=== PATIENT | female | born 1990 | race American Indian/Alaskan Native ===

== ENCOUNTER 2019-08-07 11:50 | Observation (INO) | payer MEDICAID ==
[2019-08-07] MEDS ORDERED: LACTATED RINGERS 1,000 ML ONE (12:51)
[2019-08-07] MEDS ORDERED: ONDANSETRON 4 MG/2 ML INJ ONE (12:54)
[2019-08-07] MEDS ORDERED: ONDANSETRON 4 MG/2 ML INJ IV ONE (13:12)
[2019-08-07] MEDS ORDERED: LACTATED RINGERS 1,000 ML IV ONE (13:30)
[2019-08-07 14:13] LABS: Basophils % (Auto) 0.4 % (0.0-1.8); Eosinophils % (Auto) 0.3 % (0.0-4.3); Hematocrit 40.3 % (30.3-42.9); Hemoglobin 13.9 gm/dl (10.1-14.3); Lymphocytes # (Auto) 2.6 K/mm3 (1.2-5.4); Lymphocytes % (Auto) 20.1 % (13.4-35.0); Mean Corpuscular HGB Conc 35 % (30-34); Mean Corpuscular Volume 90 fl (79-97); Monocytes # (Auto) 0.9 K/mm3 (0.0-0.8); Platelet Count 332 K/mm3 (140-440); Red Blood Count 4.49 M/mm3 (3.65-5.03); Red Cell Distribution Width 12.3 % (13.2-15.2)
[2019-08-07 14:56] LABS: Alanine Aminotransferase 46 units/L (7-56); Albumin 4.2 g/dL (3.9-5); BUN/Creatinine Ratio 14; Blood Urea Nitrogen 7 mg/dL (7-17); Calcium 9.7 mg/dL (8.4-10.2); Hemolysis Index 2
[2019-08-07] MEDS: LACTATED RINGERS 1,000 ML IV SCH (15:24)
[2019-08-07] MEDS ORDERED: POTASSIUM CHLORIDE 10 MEQ 10 MEQ/100 ML BAG IV ONE (16:30)
[2019-08-08] MEDS: LACTATED RINGERS 1,000 ML IV SCH ×2 (00:22→08:09)
[2019-08-08] MEDS ORDERED: D5W/0.45% NACL/KCL 20 MEQ 20 MEQ/1,000 ML BAG IV SCH (10:00)
[2019-08-08] MEDS ORDERED: AMPICILLIN 2 GM in SODIUM CHLORIDE 0.9% 50 ML IV ONE (12:19)
[2019-08-08] MEDS ORDERED: AMPICILLIN 1 GM in SODIUM CHLORIDE 0.9% 50 ML IV SCH ×2 (13:00→18:00)
[2019-08-08] MEDS ORDERED: AMPICILLIN/NS 2 GM/100 ML 2 GM/100 ML BAG IV ONE (13:00)
--- NOTE | 2019-08-08 13:47 | History and Physical Report ---
History of Present Illness Date of examination: 08/08/19 Date of admission: 08/07/19 12:42 Chief complaint: Admitted overnight with bilateral loin pains, nausea and vomiting, chills and high temperature. History of present illness: Patient first presented with her symptoms of nausea and vomiting and loin pains to [facility] in [place] 6 days ago, she was evaluated and sent home. Her difficulties persisted and she returned to the hospital last night after noticing blood in her urine. She is 15 weeks and says that she had been given to due dates of 01/15/2020 and 01/27/2020. She denied any vaginal bleeding. Past History Past Medical History: no pertinent history - Obstetrical History : 2 Medications and Allergies Allergies Allergy/AdvReac Type Severity Reaction Status Date / Time No Known Allergies Allergy Verified 08/13/16 07:10 Home Medications Medication Instructions Recorded Confirmed Last Taken Type Metoclopramide [Reglan] 10 mg PO ACHS 08/07/19 08/07/19 1 Day Ago History ~08/06/19 Nitrofurantoin 100 mg PO BID 08/07/19 08/07/19 1 Day Ago History ~08/06/19 Active Meds: Active Medications Potassium Chloride/Dextrose/Sod Cl (D5w/0.45% Nacl/Kcl 20 Meq) 20 meq in 1,000 mls @ 125 mls/hr IV DIRECT CESAR Last Admin: 08/08/19 10:45 Dose: 125 mls/hr Documented by: Ampicillin Sodium 1 gm/ Sodium (Chloride) 50 mls @ 200 mls/hr IV ONCE CESAR; Protocol Stop: 08/13/19 13:14 Ampicillin Sodium (Ampicillin/Ns 2 Gm/100 Ml) 2 gm in 100 mls @ 100 mls/hr IV ONCE ONE Stop: 08/08/19 13:59 Review of Systems Constitutional: fever, chills Gastrointestinal: nausea, vomiting Genitourinary: hematuria, other (loin pains, both sides) - Vital Signs Vital signs: Vital Signs Temp Pulse BP 99 F 83 112/68 08/07/19 14:39 08/07/19 14:39 08/07/19 14:39 Temp Pulse Resp BP Pulse Ox 98.0 F 90 18 107/61 99 08/08/19 11:57 08/08/19 11:57 08/08/19 11:57 08/08/19 11:57 08/08/19 11:57 - Physical Exam Breasts: Positive: deferred Lungs: Positive: Normal air movement Abdomen: Positive: soft, distention. Negative: tenderness - Obstetrical FHR: auscultation normal Results Result Diagrams: 08/07/19 13:51 08/08/19 07:59 Abnormal lab results 08/07/19 08/07/19 08/08/19 Range/Units 13:51 13:51 07:59 WBC 13.0 H (4.5-11.0) K/mm3 MCHC 35 H (30-34) % RDW 12.3 L (13.2-15.2) % [place] # 0.9 H (0.0-0.8) K/mm3 Seg Neutrophils % 72.2 H (40.0-70.0) % Seg Neutrophils # 9.4 H (1.8-7.7) K/mm3 Sodium 133 L (137-145) mmol/L Potassium 2.6 L* 2.5 L* (3.6-5.0) mmol/L Chloride 95.8 L (98-107) mmol/L Carbon Dioxide 21 L (22-30) mmol/L Creatinine 0.5 L (0.7-1.2) mg/dL All other labs normal. Assessment and Plan - Patient Problems (1) Hypokalemia Current Visit: Yes Status: Acute Plan to address problem: Hospitalist consult was requested. (2) Pyelonephritis affecting in second trimester Current Visit: Yes Status: Acute Plan to address problem: Patient will remain admitted for intravenous antibiotics. CBC, CMP, urine cultures, kidney ultrasounds, gallbladder and full obstetrical ultrasounds were ordered. Patient was started on intravenous ampicillin with a loading dose of 2 g and continuing with 1 g every 4 H
--- NOTE | 2019-08-08 17:10 | Ultrasound Report ---
OB Ultrasound HISTORY: . patient with abdominal pain TECHNIQUE: Grayscale and color Doppler imaging performed. COMPARISON: None FINDINGS: Transabdominal and endovaginal imaging was performed. There is a single intrauterine gestation which is breech in presentation. Overall EGA is approximatel y 16 weeks and 2 days by evaluating biparietal diameter, head circumference, abdominal circumference, and femoral length. The sonographic EGA is within one week of the clinical gestational age. Estimate d delivery date is 01/21/2020. The placenta approximates the cervical age, approximately 1.8 cm from the internal cervical os. There are amniotic fluid pockets greater than 2 cm. heart rate is 156 bpm. IMPRESSION: Single viable intrauterine gestation as outlined above. Please note that the placenta is currently approximately 1.8 cm from the internal cervical os. Signer Name: Feliz Cannon MD Signed: 08/08/2019 5:06 PM Workstation Name: [id number]
[2019-08-08] MEDS: AMPICILLIN/NS 1 GM/50 ML 1 GM/50 ML BAG IV SCH ×2 (17:52→22:05)
[2019-08-08] MEDS: POTASSIUM CHLORIDE 10 MEQ 10 MEQ/100 ML BAG IV SCH ×2 (20:56→22:06)
[2019-08-08 23:27] LABS: BUN/Creatinine Ratio 5; Blood Urea Nitrogen 2 mg/dL (7-17); Calcium 8.5 mg/dL (8.4-10.2); Hemolysis Index 9
[2019-08-09] MEDS: POTASSIUM CHLORIDE 10 MEQ 10 MEQ/100 ML BAG IV SCH ×5 (00:03→14:57)
[2019-08-09] MEDS: AMPICILLIN/NS 1 GM/50 ML 1 GM/50 ML BAG IV SCH ×4 (02:21→14:29)
--- NOTE | 2019-08-09 07:29 | Consultation ---
History of Present Illness - Reason for Consult Consult date: 08/08/19 Hypokalemia Requesting physician: ARTEM MOROCHO - History of Present Illness Medical consult for Hypokalemia. Patient has been vomiting . Patient first presented with her symptoms of nausea and vomiting and loin pains to [facility] in [place] 6 days ago, she was evaluated and sent home. Her difficulties persisted and she returned to [facility] last night after noticing blood in her urine. She is 15 weeks and says that she had been given due dates of 01/15/2020 and 01/27/2020. She denied any vaginal bleeding. Feels weak. Past History Past Medical History: No medical history Past Surgical History: No surgical history Social history: lives with family, full code Family history: hypertension Medications and Allergies Allergies Allergy/AdvReac Type Severity Reaction Status Date / Time No Known Allergies Allergy Verified 08/13/16 07:10 Home Medications Medication Instructions Recorded Confirmed Last Taken Type Metoclopramide [Reglan] 10 mg PO ACHS 08/07/19 08/07/19 1 Day Ago History ~08/06/19 Nitrofurantoin 100 mg PO BID 08/07/19 08/07/19 1 Day Ago History ~08/06/19 Active Meds: Active Medications Potassium Chloride/Dextrose/Sod Cl (D5w/0.45% Nacl/Kcl 20 Meq) 20 meq in 1,000 mls @ 125 mls/hr IV DIRECT CESAR Last Admin: 08/08/19 10:45 Dose: 125 mls/hr Documented by: Ampicillin Sodium (Ampicillin/Ns 1 Gm/50 Ml) 1 gm in 50 mls @ 100 mls/hr IV Q4HR CESAR Stop: 08/09/19 14:29 Last Admin: 08/09/19 06:14 Dose: 100 mls/hr Documented by: Review of Systems All systems: negative Exam - Constitutional Vitals: Temp Pulse Resp BP Pulse Ox 98.4 F 85 20 112/65 97 08/09/19 04:39 08/09/19 04:39 08/09/19 04:39 08/09/19 04:39 08/09/19 04:39 General appearance: Present: no acute distress, well-nourished - EENT Eyes: Present: PERRL ENT: hearing intact, clear oral mucosa - Neck Neck: Present: supple, normal ROM - Respiratory Respiratory effort: normal Respiratory: bilateral: CTA - Cardiovascular Heart Sounds: Present: S1 & S2. Absent: rub, click - Extremities Extremities: pulses symmetrical, No edema Peripheral Pulses: within normal limits - Abdominal General gastrointestinal: Present: soft, non-tender, non-distended, normal bowel sounds Female genitourinary: Present: normal - Integumentary Integumentary: Present: clear, warm, dry - Musculoskeletal Musculoskeletal: gait normal, strength equal bilaterally - Psychiatric Psychiatric: appropriate mood/affect, intact judgment & insight - Neurologic Neurologic: CNII-XII intact, moves all extremities Results - Labs CBC & Chem 7: 08/07/19 13:51 08/08/19 22:39 Labs: Abnormal lab results 08/08/19 08/08/19 Range/Units 07:59 22:39 Sodium 135 L (137-145) mmol/L Potassium 2.5 L* 2.8 L* (3.6-5.0) mmol/L BUN 2 L (7-17) mg/dL Creatinine 0.4 L (0.7-1.2) mg/dL Assessment and Plan - Patient Problems (1) Hypokalemia Current Visit: Yes Status: Acute Plan to address problem: IV potassium for now Check BMP (2) Dehydration Current Visit: Yes Status: Acute Plan to address problem: IV fluids for now
[2019-08-09 08:15] LABS: BUN/Creatinine Ratio 5; Blood Urea Nitrogen 2 mg/dL (7-17); Calcium 9.2 mg/dL (8.4-10.2); Hemolysis Index 2
[2019-08-09] MEDS: D5W/0.9% NACL 1,000 ML IV SCH (10:09)
[2019-08-09] MEDS ORDERED: POTASSIUM CHLORIDE ER 20 MEQ TAB PO ONE ×2 (11:41→13:01)
--- NOTE | 2019-08-09 12:03 | Progress Note ---
Assessment and Plan Assessment and plan: Severe hypokalemia - Likely due to recurrent vomiting - Currently vomiting resolved - Patient get IV potassium and her repeat potassium level is 3, will give her potassium PO - will check level after repletion - Magnesium level is normal Abdominal pain - Resolved Patient is on IV ampicillin per LEAD PASTOR I ordered U/A will follow along Thank you for your consult. History Interval history: Patient was seen and is wondering of the bedside, patient didn't have any vomiting or abdominal pain today. She doesn't have any complaints. Hospitalist Physical - Physical exam Narrative exam: Not in cardiopulmonary distress. The patient appeared well nourished and normally developed. Vital signs as documented. Head exam is unremarkable. No scleral icterus . Neck is without jugular venous distension, thyromegaly, or carotid bruits. Lungs are clear to auscultation. Cardiac exam reveals regular rate and Rhythm. Abdominal exam reveals normal bowel sounds, nontender, no organomegaly. Extremities are nonedematous and both femoral and pedal pulses are normal. CYCLE SPECIALIST: Alert and oriented 3. No focal weakness. - Constitutional Vitals: Temp Pulse Resp BP Pulse Ox 98.0 F 94 H 18 123/71 99 08/09/19 07:38 08/09/19 07:38 08/09/19 07:38 08/09/19 07:38 08/09/19 07:38 General appearance: Present: no acute distress, well-nourished Results - Labs CBC & Chem 7: 08/07/19 13:51 08/09/19 07:14 Labs: Laboratory Last Values WBC 13.0 K/mm3 (4.5-11.0) H 08/07/19 13:51 RBC 4.49 M/mm3 (3.65-5.03) 08/07/19 13:51 Hgb 13.9 gm/dl (10.1-14.3) 08/07/19 13:51 Hct 40.3 % (30.3-42.9) 08/07/19 13:51 MCV 90 fl (79-97) 08/07/19 13:51 MCH 31 pg (28-32) 08/07/19 13:51 MCHC 35 % (30-34) H 08/07/19 13:51 RDW 12.3 % (13.2-15.2) L 08/07/19 13:51 Plt Count 332 K/mm3 (140-440) 08/07/19 13:51 Lymph % (Auto) 20.1 % (13.4-35.0) 08/07/19 13:51 [place] % (Auto) 7.0 % (0.0-7.3) 08/07/19 13:51 Eos % (Auto) 0.3 % (0.0-4.3) 08/07/19 13:51 Baso % (Auto) 0.4 % (0.0-1.8) 08/07/19 13:51 Lymph # 2.6 K/mm3 (1.2-5.4) 08/07/19 13:51 Haakon # 0.9 K/mm3 (0.0-0.8) H 08/07/19 13:51 Eos # 0.0 K/mm3 (0.0-0.4) 08/07/19 13:51 Baso # 0.0 K/mm3 (0.0-0.1) 08/07/19 13:51 Seg Neutrophils % 72.2 % (40.0-70.0) H 08/07/19 13:51 Seg Neutrophils # 9.4 K/mm3 (1.8-7.7) H 08/07/19 13:51 Sodium 136 mmol/L (137-145) L 08/09/19 07:14 Potassium 3.0 mmol/L (3.6-5.0) L 08/09/19 07:14 Chloride 101.0 mmol/L (98-107) 08/09/19 07:14 Carbon Dioxide 21 mmol/L (22-30) L 08/09/19 07:14 Anion Gap 17 mmol/L 08/09/19 07:14 BUN 2 mg/dL (7-17) L 08/09/19 07:14 Creatinine 0.4 mg/dL (0.7-1.2) L 08/09/19 07:14 Estimated GFR > 60 ml/min 08/09/19 07:14 BUN/Creatinine Ratio 5 % 08/09/19 07:14 Glucose 85 mg/dL (65-100) 08/09/19 07:14 Calcium 9.2 mg/dL (8.4-10.2) 08/09/19 07:14 Magnesium 1.80 mg/dL (1.7-2.3) 08/09/19 07:14 Total Bilirubin 0.80 mg/dL (0.1-1.2) 08/07/19 13:51 AST 33 units/L (5-40) 08/07/19 13:51 ALT 46 units/L (7-56) 08/07/19 13:51 Alkaline Phosphatase 76 units/L (35-129) 08/07/19 13:51 Total Protein 8.0 g/dL (6.3-8.2) 08/07/19 13:51 Albumin 4.2 g/dL (3.9-5) 08/07/19 13:51 Albumin/Globulin Ratio 1.1 % 08/07/19 13:51 Active Medications - Current Medications Current Medications: Generic Name Dose Route Start Last Admin Trade Name Freq PRN Reason Stop Dose Admin Ampicillin Sodium 1 gm in 50 mls @ 100 mls/hr 08/08/19 18:00 08/09/19 10:00 Ampicillin/Ns 1 Gm/50 Ml IV 08/09/19 14:29 100 mls/hr Q4HR CESAR Administration Potassium Chloride 10 meq in 100 mls @ 100 mls/hr 08/09/19 08:30 08/09/19 11:07 Kcl 10meq/100ml IV 08/09/19 12:29 Not Given Q1H CESAR Dextrose/Sodium Chloride 1,000 mls @ 75 mls/hr 08/09/19 08:00 08/09/19 10:09 D5ns IV 75 mls/hr DIRECT CESAR Administration
[2019-08-09 13:48] LABS: Bacteria,Urine 1+ /HPF (Negative); Bilirubin,Urine NEG (Negative); Blood,Urine LG (Negative); Color,Urine Yellow (Yellow); Mucus,Urine FEW /HPF; Protein,Urine <15 mg/dL mg/dL (Negative)
[2019-08-09 13:51] LABS: RBC,Urine > 182.0 /HPF (0.0-6.0)
--- NOTE | 2019-08-09 15:56 | Progress Note ---
Assessment and Plan - Patient Problems (1) Hypokalemia Current Visit: Yes Status: Acute (2) Pyelonephritis affecting in second trimester Current Visit: Yes Status: Acute Plan to address problem: Present management appears to be yielding results and will continue. Cultures results of urine and blood were noted. Last K value was also noted at 3.0. Subjective Date of service: 08/09/19 Principal diagnosis: Pyelonephritis Interval history: Under management for UTI and hypokalemia. Reported having no loin pains today and craving solid food. Objective - Constitutional Vitals: Vital Signs - 12hr 08/09/19 08/09/19 08/09/19 04:39 07:38 11:44 Temperature 98.4 F 98.0 F 98.7 F Pulse Rate 85 94 H 85 Respiratory 20 18 16 Rate Blood Pressure 112/65 123/71 100/49 O2 Sat by Pulse 97 99 98 Oximetry 08/09/19 15:31 Temperature 98.4 F Pulse Rate 87 Respiratory 16 Rate Blood Pressure 112/59 O2 Sat by Pulse 98 Oximetry General appearance: Present: no acute distress - EENT Eyes: PERRL - Respiratory Respiratory effort: normal - Labs CBC & Chem 7: 08/07/19 13:51 08/09/19 07:14 Labs: Abnormal lab results 08/08/19 08/09/19 08/09/19 Range/Units 22:39 07:14 12:50 Sodium 135 L 136 L (137-145) mmol/L Potassium 2.8 L* 3.0 L (3.6-5.0) mmol/L Carbon Dioxide 21 L (22-30) mmol/L BUN 2 L 2 L (7-17) mg/dL Creatinine 0.4 L 0.4 L (0.7-1.2) mg/dL Urine pH 8.0 H (5.0-7.0) U Epithel Cells (Auto) 19.0 H (0-13.0) /HPF Medications & Allergies - Medications Allergies/Adverse Reactions: Allergies No Known Allergies Allergy (Verified 08/13/16 07:10) Home Medications: Home Medications Medication Instructions Recorded Confirmed Last Taken Type Metoclopramide [Reglan] 10 mg PO ACHS 08/07/19 08/07/19 1 Day Ago History ~08/06/19 Nitrofurantoin 100 mg PO BID 08/07/19 08/07/19 1 Day Ago History ~08/06/19 Active Medications: Generic Name Dose Route Start Last Admin Trade Name Freq PRN Reason Stop Dose Admin Dextrose/Sodium Chloride 1,000 mls @ 75 mls/hr 08/09/19 08:00 08/09/19 10:09 D5ns IV 75 mls/hr DIRECT CESAR Administration
[2019-08-10 06:38] LABS: BUN/Creatinine Ratio 5; Blood Urea Nitrogen 2 mg/dL (7-17); Calcium 8.7 mg/dL (8.4-10.2); Hemolysis Index 16
[2019-08-10] MEDS ORDERED: POTASSIUM CHLORIDE ER 20 MEQ TAB PO NR ×2 (07:57→11:30)
[2019-08-10] MEDS: D5W/0.9% NACL 1,000 ML IV SCH (10:05)
[2019-08-10] MEDS: POTASSIUM CHLORIDE ER 20 MEQ TAB PO SCH ×2 (10:05→21:12)
--- NOTE | 2019-08-10 15:26 | Progress Note ---
Assessment and Plan Assessment and plan: Severe hypokalemia - Likely due to recurrent vomiting - Currently vomiting resolved - Patient get IV potassium and her repeat potassium level is 3, will give her potassium PO - will check level after repletion - Magnesium level is normal Abdominal pain - Resolved Patient is on IV ampicillin per SNOW REMOVING SUPERVISOR - U/A negative will follow along Thank you for your consult. History Interval history: Patient was seen and is wondering of the bedside, patient didn't have any vomiting or abdominal pain today. She doesn't have any complaints. Hospitalist Physical - Physical exam Narrative exam: Not in cardiopulmonary distress. The patient appeared well nourished and normally developed. Vital signs as documented. Head exam is unremarkable. No scleral icterus . Neck is without jugular venous distension, thyromegaly, or carotid bruits. Lungs are clear to auscultation. Cardiac exam reveals regular rate and Rhythm. Abdominal exam reveals normal bowel sounds, nontender, no organomegaly. Extremities are nonedematous and both femoral and pedal pulses are normal. SECURITY SHIFT SUPERVISOR: Alert and oriented 3. No focal weakness. - Constitutional Vitals: Temp Pulse Resp BP Pulse Ox 98.1 F 88 18 114/71 98 08/10/19 12:48 08/10/19 12:48 08/10/19 12:48 08/10/19 12:48 08/10/19 05:49 General appearance: Present: no acute distress Results - Labs CBC & Chem 7: 08/07/19 13:51 08/10/19 14:51 Labs: Laboratory Last Values WBC 13.0 K/mm3 (4.5-11.0) H 08/07/19 13:51 RBC 4.49 M/mm3 (3.65-5.03) 08/07/19 13:51 Hgb 13.9 gm/dl (10.1-14.3) 08/07/19 13:51 Hct 40.3 % (30.3-42.9) 08/07/19 13:51 MCV 90 fl (79-97) 08/07/19 13:51 MCH 31 pg (28-32) 08/07/19 13:51 MCHC 35 % (30-34) H 08/07/19 13:51 RDW 12.3 % (13.2-15.2) L 08/07/19 13:51 Plt Count 332 K/mm3 (140-440) 08/07/19 13:51 Lymph % (Auto) 20.1 % (13.4-35.0) 08/07/19 13:51 Johnson % (Auto) 7.0 % (0.0-7.3) 08/07/19 13:51 Eos % (Auto) 0.3 % (0.0-4.3) 08/07/19 13:51 Baso % (Auto) 0.4 % (0.0-1.8) 08/07/19 13:51 Lymph # 2.6 K/mm3 (1.2-5.4) 08/07/19 13:51 Johnson # 0.9 K/mm3 (0.0-0.8) H 08/07/19 13:51 Eos # 0.0 K/mm3 (0.0-0.4) 08/07/19 13:51 Baso # 0.0 K/mm3 (0.0-0.1) 08/07/19 13:51 Seg Neutrophils % 72.2 % (40.0-70.0) H 08/07/19 13:51 Seg Neutrophils # 9.4 K/mm3 (1.8-7.7) H 08/07/19 13:51 Sodium 139 mmol/L (137-145) 08/10/19 05:30 Potassium 3.4 mmol/L (3.6-5.0) L 08/10/19 14:51 Chloride 105.8 mmol/L (98-107) 08/10/19 05:30 Carbon Dioxide 19 mmol/L (22-30) L 08/10/19 05:30 Anion Gap 17 mmol/L 08/10/19 05:30 BUN 2 mg/dL (7-17) L 08/10/19 05:30 Creatinine 0.4 mg/dL (0.7-1.2) L 08/10/19 05:30 Estimated GFR > 60 ml/min 08/10/19 05:30 BUN/Creatinine Ratio 5 % 08/10/19 05:30 Glucose 92 mg/dL (65-100) 08/10/19 05:30 Calcium 8.7 mg/dL (8.4-10.2) 08/10/19 05:30 Magnesium 1.80 mg/dL (1.7-2.3) 08/09/19 07:14 Total Bilirubin 0.80 mg/dL (0.1-1.2) 08/07/19 13:51 AST 33 units/L (5-40) 08/07/19 13:51 ALT 46 units/L (7-56) 08/07/19 13:51 Alkaline Phosphatase 76 units/L (35-129) 08/07/19 13:51 Total Protein 8.0 g/dL (6.3-8.2) 08/07/19 13:51 Albumin 4.2 g/dL (3.9-5) 08/07/19 13:51 Albumin/Globulin Ratio 1.1 % 08/07/19 13:51 Urine Color Yellow (Yellow) 08/09/19 12:50 Urine Turbidity Slightly-cloudy (Clear) 08/09/19 12:50 Urine pH 8.0 (5.0-7.0) H 08/09/19 12:50 Ur Specific [place] 1.009 (1.003-1.030) 08/09/19 12:50 Urine Protein <15 mg/dl mg/dL (Negative) 08/09/19 12:50 Urine Glucose (UA) Neg mg/dL (Negative) 08/09/19 12:50 Urine Ketones 20 mg/dL (Negative) 08/09/19 12:50 Urine Blood Lg (Negative) 08/09/19 12:50 Urine Nitrite Neg (Negative) 08/09/19 12:50 Urine Bilirubin Neg (Negative) 08/09/19 12:50 Urine Urobilinogen 4.0 mg/dL (<2.0) 08/09/19 12:50 Ur Leukocyte Esterase Sm (Negative) 08/09/19 12:50 Urine WBC (Auto) 6.0 /HPF (0.0-6.0) 08/09/19 12:50 Urine RBC (Auto) > 182.0 /HPF (0.0-6.0) 08/09/19 12:50 U Epithel Cells (Auto) 19.0 /HPF (0-13.0) H 08/09/19 12:50 Urine Bacteria (Auto) 1+ /HPF (Negative) 08/09/19 12:50 Urine Mucus Few /HPF 08/09/19 12:50 Active Medications - Current Medications Current Medications: Generic Name Dose Route Start Last Admin Trade Name Osielq PRN Reason Stop Dose Admin Dextrose/Sodium Chloride 1,000 mls @ 75 mls/hr 08/09/19 08:00 08/10/19 10:05 D5ns IV 75 mls/hr DIRECT CESAR Administration Potassium Chloride 40 meq 08/10/19 10:00 08/10/19 10:05 K-Dur PO 40 meq BID CESAR Administration Potassium Chloride 40 meq 08/10/19 15:25 K-Dur PO 08/10/19 15:26 ONCE ONE
[2019-08-10] MEDS ORDERED: POTASSIUM CHLORIDE ER 20 MEQ TAB PO ONE (16:30)
--- NOTE | 2019-08-10 17:16 | Progress Note ---
Assessment and Plan - Patient Problems (1) Dehydration Current Visit: Yes Status: Acute Plan to address problem: PT tolerating PO so she was encouraged to cont to hydrate well. Her blood in urine should clear as she continues to hydrate. No CVAT so obstructive stone not likely. PT's urine culture was negative. (2) Hypokalemia Current Visit: Yes Status: Acute Plan to address problem: K was 2.5 on admission and now upto 3.4. Obstetrically, pt is stable for d/c. Will verify that medicine is okay with it as well. Will send home with Unisom/Vit B6 to help with nausea along with a few days of additional potassium to supplement with at home. HEG precautions d/w pt. F/U in office next week Subjective - Subjective Date of service: 08/10/19 Principal diagnosis: Pyelonephritis Interval history: hypokalemia Patient reports: other (PT doing well. PO is tolerated. No VB, no pelvic pain. PT still with some gross hematuria she still notes but no upper back pain.), no new complaints, no loss of fluid, no vaginal bleeding, no contractions Objective - Vital Signs Vital Signs: Vital Signs - 12hr 08/10/19 08/10/19 08/10/19 05:49 08:18 12:48 Temperature 98.0 F 97.9 F 98.1 F Pulse Rate 85 83 88 Respiratory 14 18 18 Rate Blood Pressure 110/61 Blood Pressure 103/61 114/71 [Left] O2 Sat by Pulse 98 Oximetry 08/10/19 16:05 Temperature 98.3 F Pulse Rate 87 Respiratory 18 Rate Blood Pressure Blood Pressure 109/57 [Left] O2 Sat by Pulse Oximetry - Exam Narrative Exam: NAD No CVAT B/L - Labs Labs: Abnormal Labs 08/07/19 08/07/19 08/08/19 13:51 13:51 07:59 WBC 13.0 H MCHC 35 H RDW 12.3 L Ellis # 0.9 H Seg Neutrophils % 72.2 H Seg Neutrophils # 9.4 H Sodium 133 L Potassium 2.6 L* 2.5 L* Chloride 95.8 L Carbon Dioxide 21 L BUN Creatinine 0.5 L Urine pH U Epithel Cells (Auto) 08/08/19 08/09/19 08/09/19 22:39 07:14 12:50 WBC MCHC RDW Ellis # Seg Neutrophils % Seg Neutrophils # Sodium 135 L 136 L Potassium 2.8 L* 3.0 L Chloride Carbon Dioxide 21 L BUN 2 L 2 L Creatinine 0.4 L 0.4 L Urine pH 8.0 H U Epithel Cells (Auto) 19.0 H 08/10/19 08/10/19 05:30 14:51 WBC MCHC RDW Ellis # Seg Neutrophils % Seg Neutrophils # Sodium Potassium 3.1 L 3.4 L Chloride Carbon Dioxide 19 L BUN 2 L Creatinine 0.4 L Urine pH U Epithel Cells (Auto) Laboratory Results - last 24 hr 08/10/19 08/10/19 05:30 14:51 Sodium 139 Potassium 3.1 L 3.4 L Chloride 105.8 Carbon Dioxide 19 L Anion Gap 17 BUN 2 L Creatinine 0.4 L Estimated GFR > 60 BUN/Creatinine Ratio 5 Glucose 92 Calcium 8.7
[2019-08-10 22:53] VITALS: BP 100/48
== END 2019-08-10 23:30 | disposition home or self-care (01) ==
LOC: 3A 11:50 → UNDOADMOB 11:50 → OB 12:42
PROVIDERS: ADMIT Obstetrics & Gynecology; ATTEND Obstetrics & Gynecology
DX: O23.02 Infections of kidney in pregnancy, second trimester (principal); N12 Tubulo-interstitial nephritis, not specified as acute or chronic; E87.6 Hypokalemia; E86.0 Dehydration; Z3A.15 15 weeks gestation of pregnancy
CPT/HCPCS: 36415; 76805; 76817; 80048; 80053; 81001; 83735; 84132; 85025; 87040; 87086; 96361; 96365; 96366; 96368; 96375; G0378; G0379; J0290; J2405; J3480; J7042; J7120

== ENCOUNTER 2019-09-28 06:16 | Inpatient (IN) | payer OTHER ==
[2019-09-28] MEDS ORDERED: LACTATED RINGERS 1,000 ML ONE (06:23)
[2019-09-28] MEDS ORDERED: LACTATED RINGERS 1,000 ML IV ONE (06:28)
[2019-09-28 06:57] LABS: Bacteria,Urine 2+ /HPF (Negative); Bilirubin,Urine NEG (Negative); Blood,Urine SM (Negative); Color,Urine Amber (Yellow); Mucus,Urine 2+ /HPF
[2019-09-28 06:59] LABS: WBC,Urine > 182.0 /HPF (0.0-6.0)
--- NOTE | 2019-09-28 08:11 | History and Physical Report ---
History of Present Illness Date of examination: 09/28/19 Date of admission: 09/28/2019 Chief complaint: Complaining of difficulty with urination, poor appetite, suprapubic pain, bilateral loin pains. She denied fever and chills. History of present illness: 29 yr old at 22 weeks gestation. RICKIE 01/27/2020. Complaining of difficulty with urination, poor appetite, suprapubic pain, bilateral loin pains. She denied fever and chills. Patient was treated for pyelonephritis about 4 wks ago here at [facility] and described her state now as how she felt then. She stated her fetus was normally-active with no leakage of fluids or bleeding per vaginam. Past History Past Medical History: renal disease - Obstetrical History Expected Date of Delivery: 01/27/20 Actual Gestation: 22 Week(s) 5 Day(s) : 3 Para: 1 Medications and Allergies Allergies Allergy/AdvReac Type Severity Reaction Status Date / Time No Known Allergies Allergy Verified 09/28/19 06:28 Home Medications Medication Instructions Recorded Confirmed Last Taken Type Doxylamine Succinate [Unisom] 25 mg PO QHS PRN #30 tablet 08/10/19 Unknown Rx Potassium Chloride [K-Dur] 40 meq PO BID #10 tablet 08/10/19 Unknown Rx Pyridoxine HCl (Vitamin B6) 25 mg PO Q6HR PRN #30 tablet 08/10/19 Unknown Rx [Pyridoxine HCl] Review of Systems Constitutional: anorexia, malaise, poor appetite, no fever, no chills, no sweats Cardiovascular: no chest pain, no palpitations Respiratory: no cough Gastrointestinal: abdominal pain, loss of appetite, no vomiting, no diarrhea Genitourinary: dysuria, pelvic pain, no vaginal bleeding, no vaginal discharge, no contractions - Vital Signs Vital signs: Vital Signs Temp 98.9 F 09/28/19 06:30 Temp Pulse Resp BP Pulse Ox 98.9 F 97 H 124/63 100 09/28/19 06:30 09/28/19 07:12 09/28/19 07:12 09/28/19 07:09 - Physical Exam Lungs: Positive: Normal air movement Abdomen: Positive: normal appearance, soft, tenderness (suprapubic), normal bowel sounds Extremities: Positive: normal - Obstetrical FHR: category 1 Uterine Contraction Monitor Mode: External Results Abnormal lab results 09/28/19 Range/Units 06:43 Urine WBC (Auto) > 182.0 H (0.0-6.0) /HPF All other labs normal. Assessment and Plan - Patient Problems (1) Pyelonephritis affecting in second trimester Current Visit: No Status: Acute Plan to address problem: Orders were given for urine and blood cultures, cbc, cmp, D5LR, WILVER, Admit to in-patient. OB US, Kidney and bladder US. Consult to M and nephrology.
[2019-09-28] MEDS ORDERED: DOCUSATE SODIUM 100 MG CAP PO PRN (09:00)
[2019-09-28] MEDS ORDERED: ACETAMINOPHEN 325 MG TAB PO PRN (09:00)
[2019-09-28] MEDS ORDERED: HYDROmorphone 2 MG/1 ML INJ IV PRN (09:15)
--- NOTE | 2019-09-28 09:28 | Consultation ---
History of Present Illness Consult date: 09/28/19 Requesting physician: ARTEM MOROCHO History of present illness: Complaining of difficulty with urination, poor appetite, suprapubic pain, bilateral loin pains. She denied fever and chills. History of present illness: 29 yr old at [facility] at 22 weeks gestation. 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 Vag deferred OB 2015 Term M 8'5" No med No surg NKA No STD Past History Past Medical History: renal disease - Obstetrical History : 3 Medications and Allergies Allergies Allergy/AdvReac Type Severity Reaction Status Date / Time No Known Allergies Allergy Verified 09/28/19 06:28 Home Medications Medication Instructions Recorded Confirmed Last Taken Type Doxylamine Succinate [Unisom] 25 mg PO QHS PRN #30 tablet 08/10/19 Unknown Rx Potassium Chloride [K-Dur] 40 meq PO BID #10 tablet 08/10/19 Unknown Rx Pyridoxine HCl (Vitamin B6) 25 mg PO Q6HR PRN #30 tablet 08/10/19 Unknown Rx [Pyridoxine HCl] Active Meds: Active Medications Acetaminophen (Tylenol) 650 mg PO Q4H PRN PRN Reason: Pain MILD(1-3)/Fever >100.5/MARSHALL Docusate Sodium (Colace) 100 mg PO Q12H PRN PRN Reason: Constipation Hydromorphone HCl (Dilaudid) 2 mg IV Q4H PRN PRN Reason: Pain , Severe (7-10) Dextrose/Lactated Ringer's (D5lr) 1,000 mls @ 125 mls/hr IV DIRECT CESAR Ampicillin Sodium (Ampicillin/Ns 2 Gm/100 Ml) 2 gm in 100 mls @ 100 mls/hr IV Q4H CESAR; Protocol Multivitamins/Iron/Calcium ( Vitamin) 1 each PO QDAY CESAR - Vital Signs Vital signs: Vital Signs Temp 98.9 F 09/28/19 06:30 Temp Pulse Resp BP Pulse Ox 98.9 F 97 H 18 124/63 100 09/28/19 08:41 09/28/19 07:12 09/28/19 08:41 09/28/19 07:12 09/28/19 07:09 Results Abnormal lab results 09/28/19 Range/Units 06:43 Urine WBC (Auto) > 182.0 H (0.0-6.0) /HPF All other labs normal. Assessment and Plan Impression: 1. Massey IUP at 22 5/7 weeks 2. Pyelo 3. R/O Stone 4. H/O Pyelo Recommendations: 1. Pain meds Dilaudid 2 q 4-6 IV 2. Zofran 4 to 8 mg q 4R prn nausea 3. Rocephin 1 g q 24 hours 4. Please give patient script for Macrodantin 100mg PO q day for duration of when discharged 5. Urine C&S 6. Blood C&S , CMP CBC 7. IV Hydration 8. Renal US R/O stones
[2019-09-28] MEDS ORDERED: ONDANSETRON 4 MG/2 ML INJ IV PRN (09:33)
[2019-09-28 09:48] LABS: Hematocrit 32.6 % (30.3-42.9); Hemoglobin 11.6 gm/dl (10.1-14.3); Mean Corpuscular HGB Conc 36 % (30-34); Mean Corpuscular Volume 92 fl (79-97); Platelet Count 195 K/mm3 (140-440); Red Blood Count 3.54 M/mm3 (3.65-5.03); Red Cell Distribution Width 13.4 % (13.2-15.2)
[2019-09-28 10:12] LABS: Alanine Aminotransferase 8 units/L (7-56); Albumin 3.3 g/dL (3.9-5); BUN/Creatinine Ratio 7; Blood Urea Nitrogen 4 mg/dL (7-17); Calcium 8.7 mg/dL (8.4-10.2); Hemolysis Index 14
--- NOTE | 2019-09-28 10:37 | Ultrasound Report ---
ULTRASOUND OBSTETRIC LIMITED INDICATION / CLINICAL INFORMATION: cervix evaluation and rule out abruption. TECHNIQUE: Transabdominal ultrasound imaging. COMPARISON: 08/08/2019 FINDINGS: HEART RATE (beats per minute): 155 AMNIOTIC FLUID INDEX (cm) = qualitatively normal PRESENTATION: Cephalic. PLACENTA: Posterior, grade 1. No evidence for abruption or previa. ADDITIONAL FINDINGS: The cervix measures 4.1 cm in length. IMPRESSION: No significant abnormality. Signer Name: Ari David Jr, MD Signed: 09/28/2019 10:32 AM Workstation Name: [id number]
--- NOTE | 2019-09-28 10:38 | Ultrasound Report ---
RENAL ULTRASOUND HISTORY: flank pain IUP. COMPARISON: None. TECHNIQUE: Multiple real-time ultrasonographic grayscale images were obtained of the kidneys and urin rodo bladder. FINDINGS: Right kidney: Moderate hydronephrosis. No calculi identified. Kidney measures 11.2 cm. Left kidney: No significant abnormality. No hydronephrosis. Kidney measures 10.8 cm. Urinary bladder: No significant abnormality. Additional findings: None. IMPRESSION: 1. Moderate right hydronephrosis of . 2. Otherwise normal kidneys. Signer Name: Norm Ng MD Signed: 09/28/2019 10:34 AM Workstation Name: [id number]
[2019-09-28] MEDS: AMPICILLIN/NS 2 GM/100 ML 2 GM/100 ML BAG IV SCH ×4 (10:47→22:09)
[2019-09-28] MEDS: D5W/LACTATED RINGERS 1,000 ML IV SCH ×2 (10:53→16:06)
[2019-09-28 11:04] LABS: Basophils % (Manual) 0 % (0.0-1.8); Eosinophils % (Manual) 0 % (0.0-4.3); Platelet Estimate Consistent w Auto; RBC Morphology Normal; Total Cells Counted 100
[2019-09-28] MEDS ORDERED: POTASSIUM CHLORIDE ER 20 MEQ TAB PO ONE ×2 (12:23→16:40)
--- NOTE | 2019-09-28 12:23 | Consultation ---
History of Present Illness - Reason for Consult Consult date: 09/28/19 hypokalemia Requesting physician: ARTEM MOROCHO - History of Present Illness 29 YO Female at 22 weeks gestation. Consult placed for Hypokalemia. Patient seen and evaluated in her room. Patient acknowledges nausea patient denies fatigue, muscle cramping, loose stools, vomiting, chest pain, palpitations, dizziness, extremity weakness, muscle aches, muscle stiffness, numbness, or tingling. No reported nursing events. Past History Past Medical History: other (UTI/Pyelo) Past Surgical History: No surgical history, Other (reviewed) Social history: single. denies: smoking, alcohol abuse, prescription drug abuse Family history: no significant family history (reviewed) Medications and Allergies Allergies Allergy/AdvReac Type Severity Reaction Status Date / Time No Known Allergies Allergy Verified 09/28/19 06:28 Home Medications Medication Instructions Recorded Confirmed Last Taken Type Doxylamine Succinate [Unisom] 25 mg PO QHS PRN #30 tablet 08/10/19 Unknown Rx Potassium Chloride [K-Dur] 40 meq PO BID #10 tablet 08/10/19 Unknown Rx Pyridoxine HCl (Vitamin B6) 25 mg PO Q6HR PRN #30 tablet 08/10/19 Unknown Rx [Pyridoxine HCl] Active Meds: Active Medications Acetaminophen (Tylenol) 650 mg PO Q4H PRN PRN Reason: Pain MILD(1-3)/Fever >100.5/MARSHALL Docusate Sodium (Colace) 100 mg PO Q12H PRN PRN Reason: Constipation Hydromorphone HCl (Dilaudid) 2 mg IV Q4H PRN PRN Reason: Pain , Severe (7-10) Last Admin: 09/28/19 11:46 Dose: 2 mg Documented by: Dextrose/Lactated Ringer's (D5lr) 1,000 mls @ 125 mls/hr IV DIRECT CESAR Last Admin: 09/28/19 10:53 Dose: 125 mls/hr Documented by: Ampicillin Sodium (Ampicillin/Ns 2 Gm/100 Ml) 2 gm in 100 mls @ 100 mls/hr IV Q4H CESAR; Protocol Last Admin: 09/28/19 10:47 Dose: 100 mls/hr Documented by: Multivitamins/Iron/Calcium ( Vitamin) 1 each PO QDAY CESAR Ondansetron HCl (Zofran) 4 mg IV Q4H PRN PRN Reason: Nausea And Vomiting Last Admin: 09/28/19 10:39 Dose: 4 mg Documented by: Review of Systems Constitutional: no weight loss, no weight gain, no fever, no chills, no weakness Ears, nose, mouth and throat: no ear pain, no ear discharge, no tinnitis, no nose pain, no nasal congestion Breasts: no change in shape, no swelling, no mass Cardiovascular: no chest pain, no orthopnea, no palpitations, no edema, no syncope Respiratory: no cough, no cough with sputum, no excessive sputum, no hemoptysis Gastrointestinal: nausea, no vomiting, no constipation, no change in bowel habits Genitourinary Female: no pelvic pain, no flank pain, no menorrhagia, no dysuria, no urinary frequency, no urgency Rectal: no pain, no incontinence, no bleeding Musculoskeletal: no neck stiffness, no neck pain, no shooting arm pain, no low back pain, no shooting leg pain Integumentary: no rash, no pruritis, no redness, no sores, no wounds Neurological: no transient paralysis, no paralysis, no weakness, no parathesias, no numbness, no tingling, no seizures Psychiatric: no anxiety, no memory loss, no sleep disturbances, no insomnia, no change in libido Endocrine: no cold intolerance, no excessive thirst, no polyuria, no nocturia, no excessive sweating Hematologic/Lymphatic: no easy bruising, no lymphadenopathy, no lymphedema Allergic/Immunologic: no urticaria, no anaphylaxis Exam - Constitutional Vitals: Temp Pulse Resp BP Pulse Ox 100.2 F H 107 H 18 120/59 94 09/28/19 11:58 09/28/19 12:21 09/28/19 11:46 09/28/19 11:58 09/28/19 12:21 General appearance: Present: no acute distress, well-nourished - EENT Eyes: Present: PERRL ENT: hearing intact, clear oral mucosa - Neck Neck: Present: supple, normal ROM - Respiratory Respiratory effort: normal Respiratory: bilateral: CTA - Cardiovascular Heart Sounds: Present: S1 & S2. Absent: rub, click - Extremities Extremities: pulses symmetrical, No edema Peripheral Pulses: within normal limits - Abdominal General gastrointestinal: Present: soft, non-tender, normal bowel sounds, other (Gravid uterus) Female genitourinary: Present: normal - Integumentary Integumentary: Present: clear, warm, dry - Musculoskeletal Musculoskeletal: gait normal, strength equal bilaterally - Psychiatric Psychiatric: appropriate mood/affect, intact judgment & insight - Neurologic Neurologic: CNII-XII intact, moves all extremities Results - Labs CBC & Chem 7: 09/28/19 09:18 09/28/19 13:26 Labs: Abnormal lab results 09/28/19 09/28/19 09/28/19 Range/Units 06:43 09:18 09:18 WBC 14.9 H (4.5-11.0) K/mm3 RBC 3.54 L (3.65-5.03) M/mm3 MCH 33 H (28-32) pg MCHC 36 H (30-34) % Seg Neuts % (Manual) 89.0 H (40.0-70.0) % Lymphocytes % (Manual) 7.0 L (13.4-35.0) % Seg Neutrophils # Man 13.3 H (1.8-7.7) K/mm3 Lymphocytes # (Manual) 1.0 L (1.2-5.4) K/mm3 Sodium 134 L (137-145) mmol/L Potassium 2.5 L* (3.6-5.0) mmol/L Chloride 97.2 L (98-107) mmol/L Carbon Dioxide 18 L (22-30) mmol/L BUN 4 L (7-17) mg/dL Creatinine 0.6 L (0.7-1.2) mg/dL Albumin 3.3 L (3.9-5) g/dL Urine WBC (Auto) > 182.0 H (0.0-6.0) /HPF Assessment and Plan - Patient Problems (1) Hypokalemia Current Visit: No Status: Acute Plan to address problem: Potassium repletion, EKG, magnesium level, repeat BMP. No EKG changes at this time.
[2019-09-28] MEDS ORDERED: MAGNESIUM SULFATE 1 GM in WATER FOR INJ (PF) 23 ML IV ONE (12:26)
[2019-09-28] MEDS ORDERED: MAGNESIUM SULFATE 1 GM in SODIUM CHLORIDE 0.9% 50 ML IV ONE (14:00)
[2019-09-28] MEDS: POTASSIUM CHLORIDE 10 MEQ 10 MEQ/100 ML BAG IV SCH ×2 (16:05→22:10)
--- NOTE | 2019-09-28 18:23 | Consultation ---
History of Present Illness - History of Present Illness 29-year-old lady in 22 weeks gestation admitted with complaints of lower back pain patient has previous history of urinary tract infections and has been treated for this in the past. She had renal ultrasound with some clots some concern for moderate hydronephrosis labs significant for severe hypokalemia nephrology consulted she has had difficulty with urination, poor appetite Medications and Allergies Allergies Allergy/AdvReac Type Severity Reaction Status Date / Time No Known Allergies Allergy Verified 09/28/19 06:28 Home Medications Medication Instructions Recorded Confirmed Last Taken Type Doxylamine Succinate [Unisom] 25 mg PO QHS PRN #30 tablet 08/10/19 Unknown Rx Potassium Chloride [K-Dur] 40 meq PO BID #10 tablet 08/10/19 Unknown Rx Pyridoxine HCl (Vitamin B6) 25 mg PO Q6HR PRN #30 tablet 08/10/19 Unknown Rx [Pyridoxine HCl] Active Meds: Active Medications Acetaminophen (Tylenol) 650 mg PO Q4H PRN PRN Reason: Pain MILD(1-3)/Fever >100.5/MARSHALL Docusate Sodium (Colace) 100 mg PO Q12H PRN PRN Reason: Constipation Hydromorphone HCl (Dilaudid) 2 mg IV Q4H PRN PRN Reason: Pain , Severe (7-10) Last Admin: 09/28/19 11:46 Dose: 2 mg Documented by: Dextrose/Lactated Ringer's (D5lr) 1,000 mls @ 125 mls/hr IV DIRECT CESAR Last Admin: 09/28/19 16:06 Dose: 125 mls/hr Documented by: Ampicillin Sodium (Ampicillin/Ns 2 Gm/100 Ml) 2 gm in 100 mls @ 100 mls/hr IV Q4H CESAR; Protocol Last Admin: 09/28/19 17:49 Dose: 100 mls/hr Documented by: Multivitamins/Iron/Calcium ( Vitamin) 1 each PO QDAY CESAR Ondansetron HCl (Zofran) 4 mg IV Q4H PRN PRN Reason: Nausea And Vomiting Last Admin: 09/28/19 10:39 Dose: 4 mg Documented by: Potassium Chloride (K-Dur) 60 meq PO QDAY CESAR Review of Systems Constitutional: chills Ears, nose, mouth and throat: no deferred, no ear pain Breasts: no deferred Cardiovascular: no chest pain, no orthopnea, no edema Respiratory: no cough, no cough with sputum Gastrointestinal: abdominal pain, nausea, vomiting Musculoskeletal: no neck stiffness, no neck pain Integumentary: no deferred, no rash, no pruritis Psychiatric: no anxiety, no memory loss Endocrine: no cold intolerance, no heat intolerance Hematologic/Lymphatic: no easy bruising, no easy bleeding Allergic/Immunologic: no urticaria Exam - Vital Signs Vital signs: Vital Signs Temp 98.9 F 09/28/19 06:30 - General Appearance General appearance: well-developed, well-nourished EENT: ATNC, PERRL, mucous membranes moist Neck: Present: neck supple Respiratory: Clear to Ascultation Heart: regular, S1S2 Gastrointestinal: Present: normal, normoactive bowel sounds Integumentary: no rash Neurologic: CN 3-12 intact Psychiatric: mood/affect appropriate Results - Lab Results 09/28/19 09:18 09/28/19 13:26 Most recent lab results Calcium 8.7 mg/dL (8.4-10.2) 09/28/19 09:18 Magnesium 1.90 mg/dL (1.7-2.3) 09/28/19 13:26 - Image Kidney/bladder ultrasound: other Assessment and Plan - Patient Problems (1) Hypokalemia Current Visit: No Status: Acute Plan to address problem: Severe hypokalemia Magnesium is 1.9 which is reasonable has received magnesium supplementation as well We'll supplement intravenously and orally's received 40 mEq of potassium We'll give additional 60 mEq this evening's Recheck labs in a.m. (2) Pyelonephritis affecting in second trimester Current Visit: No Status: Acute Plan to address problem: Pyelonephritis Continue antibiotics (3) Hydronephrosis Current Visit: Yes Status: Acute Plan to address problem: Hydronephrosis This may be secondary to the in the setting of such hormonal changes anatomical changes There are no stones noted on ultrasound Reasonable to follow clinically Urology evaluation if necessary
[2019-09-28] MEDS ORDERED: POTASSIUM CHLORIDE ER 20 MEQ TAB PO SCH (19:00)
[2019-09-29] MEDS ORDERED: MINERAL OIL 30 ML ORAL LIQD ONE (01:45)
[2019-09-29] MEDS: AMPICILLIN/NS 2 GM/100 ML 2 GM/100 ML BAG IV SCH ×6 (02:02→22:19)
[2019-09-29] MEDS: D5W/LACTATED RINGERS 1,000 ML IV SCH ×2 (02:03→10:11)
[2019-09-29] MEDS: POTASSIUM CHLORIDE 10 MEQ 10 MEQ/100 ML BAG IV SCH ×2 (02:13→06:10)
[2019-09-29 07:00] LABS: BUN/Creatinine Ratio 5; Blood Urea Nitrogen 3 mg/dL (7-17); Calcium 8.1 mg/dL (8.4-10.2); Hemolysis Index 2
[2019-09-29] MEDS ORDERED: POTASSIUM CHLORIDE ER 20 MEQ TAB PO ONE ×3 (07:15→14:00)
[2019-09-29] MEDS: POTASSIUM CHLORIDE 10 MEQ 10 MEQ/100 ML BAG IV PRN (10:10)
--- NOTE | 2019-09-29 12:40 | Progress Note ---
Assessment and Plan - Patient Problems (1) Pyelonephritis affecting in second trimester Current Visit: No Status: Acute Plan to address problem: Orders were given for urine and blood cultures, cbc, cmp, D5LR, WILVER, Admit to in-patient. OB US, Kidney and bladder US. Consult to MFM and nephrology. MFM and Nephrology and Hospitalist consults reviewed and noted with thanks. [Most recent potassium level 2.9/L. Urine culture positive for gram negative rods: sensitivity report is pending.] Subjective - Subjective Interval history: 29 yr old at 22 weeks gestation. RICKIE 01/27/2020. Complaining of difficulty with urination, poor appetite, suprapubic pain, bilateral loin pains. She denied fever and chills. Patient was treated for pyelonephritis about 4 wks ago here at [facility] and described her state now as how she felt then. She stated her fetus was normally-active with no leakage of fluids or bleeding per vaginam. Today, 09/29/2019, patient reports feeling better without the abd pains from yesterday. Her appetite is still down but she is open to trying some food later. Patient reports: movement normal, no new complaints, no loss of fluid, no vaginal bleeding, no contractions Objective - Vital Signs Vital Signs: Vital Signs - 12hr 09/29/19 09/29/19 09/29/19 06:37 08:38 08:42 Temperature 99.1 F 98.4 F Pulse Rate 99 H Blood Pressure 109/54 09/29/19 09/29/19 09/29/19 09:48 12:01 12:32 Temperature 98.3 F 98.9 F Pulse Rate 102 H Blood Pressure 113/58 - Exam Lungs: Normal air movement Uterus: Present: fundal height at umbilicus. Absent: tenderness FHR: auscultation normal Deep Tendon Reflex Grade: Normal +2 - Labs Labs: Abnormal Labs 09/28/19 09/28/19 09/28/19 06:43 09:18 09:18 WBC 14.9 H RBC 3.54 L MCH 33 H MCHC 36 H Seg Neuts % (Manual) 89.0 H Lymphocytes % (Manual) 7.0 L Seg Neutrophils # Man 13.3 H Lymphocytes # (Manual) 1.0 L Sodium 134 L Potassium 2.5 L* Chloride 97.2 L Carbon Dioxide 18 L BUN 4 L Creatinine 0.6 L Glucose Calcium Albumin 3.3 L Urine WBC (Auto) > 182.0 H 09/28/19 09/29/19 13:26 06:07 WBC RBC MCH MCHC Seg Neuts % (Manual) Lymphocytes % (Manual) Seg Neutrophils # Man Lymphocytes # (Manual) Sodium 136 L Potassium 2.5 L* 2.9 L* Chloride Carbon Dioxide 21 L BUN 3 L Creatinine 0.6 L Glucose 108 H Calcium 8.1 L Albumin Urine WBC (Auto) Laboratory Results - last 24 hr 09/28/19 09/29/19 13:26 06:07 Sodium 136 L Potassium 2.5 L* 2.9 L* Chloride 102.1 Carbon Dioxide 21 L Anion Gap 16 BUN 3 L Creatinine 0.6 L Estimated GFR > 60 BUN/Creatinine Ratio 5 Glucose 108 H Calcium 8.1 L Magnesium 1.90
[2019-09-29] MEDS ORDERED: POTASSIUM CHLORIDE 10 MEQ 10 MEQ/100 ML BAG IV SCH (14:00)
--- NOTE | 2019-09-29 14:00 | Progress Note ---
Assessment and Plan - Patient Problems (1) Hypokalemia Current Visit: No Status: Acute Plan to address problem: Supplemented Check K level Subjective Date of service: 09/29/19 Principal diagnosis: Hypokalemia Interval history: Sx better 29 yr old at 22 weeks gestation. RICKIE 01/27/2020. Complaining of difficulty with urination, poor appetite, suprapubic pain, bilateral loin pains. She denied fever and chills. Patient was treated for pyelonephritis about 4 wks ago here at [facility] and described her state now as how she felt then. She stated her fetus was normally-active with no leakage of fluids or bleeding per vaginam. Today, 09/29/2019, patient reports feeling better without the abd pains from yesterday. Her appetite is still down but she is open to trying some food later. Patient reports: movement normal, no new complaints, no loss of fluid, no vaginal bleeding, no contractions Objective - Constitutional Vitals: Vital Signs - 12hr 09/29/19 09/29/19 09/29/19 06:37 08:38 08:42 Temperature 99.1 F 98.4 F Pulse Rate 99 H Blood Pressure 109/54 O2 Sat by Pulse Oximetry 09/29/19 09/29/19 09/29/19 09:48 12:01 12:32 Temperature 98.3 F 98.9 F Pulse Rate 102 H Blood Pressure 113/58 O2 Sat by Pulse Oximetry 09/29/19 09/29/19 09/29/19 13:00 13:01 13:03 Temperature Pulse Rate 102 H 102 H 99 H Blood Pressure 74/41 75/54 76/49 O2 Sat by Pulse Oximetry 09/29/19 09/29/19 09/29/19 13:04 13:06 13:09 Temperature Pulse Rate 101 H 101 H 106 H Blood Pressure 77/47 92/54 96/53 O2 Sat by Pulse Oximetry 09/29/19 09/29/19 09/29/19 13:12 13:13 13:18 Temperature Pulse Rate 103 H 103 H 101 H Blood Pressure 95/54 O2 Sat by Pulse 97 98 Oximetry 09/29/19 09/29/19 09/29/19 13:23 13:28 13:29 Temperature Pulse Rate 108 H 54 L Blood Pressure O2 Sat by Pulse 97 67 L 71 L Oximetry 09/29/19 09/29/19 09/29/19 13:33 13:38 13:43 Temperature Pulse Rate 106 H 107 H 106 H Blood Pressure O2 Sat by Pulse 96 96 97 Oximetry General appearance: Present: no acute distress, well-nourished - EENT Eyes: PERRL, EOM intact ENT: hearing intact, clear oral mucosa Ears: bilateral: normal - Neck Neck: supple, normal ROM - Respiratory Respiratory effort: normal Respiratory: bilateral: CTA - Breasts Breasts: normal - Cardiovascular Heart rate: 78 Rhythm: regular Heart Sounds: Present: S1 & S2. Absent: gallop, rub Extremities: no ischemia, pulses intact, No edema, normal color, Full ROM - Gastrointestinal General gastrointestinal: Present: deferred, soft, non-tender, non-distended, normal bowel sounds - Genitourinary Female genitourinary: normal - Integumentary Integumentary: clear, warm, dry - Musculoskeletal Musculoskeletal: 1, strength equal bilaterally - Neurologic Neurologic: moves all extremities - Psychiatric Psychiatric: memory intact, appropriate mood/affect, intact judgment & insight - Labs CBC & Chem 7: 09/28/19 09:18 09/29/19 06:07 Labs: Abnormal lab results 09/28/19 09/29/19 Range/Units 13:26 06:07 Sodium 136 L (137-145) mmol/L Potassium 2.5 L* 2.9 L* (3.6-5.0) mmol/L Carbon Dioxide 21 L (22-30) mmol/L BUN 3 L (7-17) mg/dL Creatinine 0.6 L (0.7-1.2) mg/dL Glucose 108 H (65-100) mg/dL Calcium 8.1 L (8.4-10.2) mg/dL
--- NOTE | 2019-09-29 16:01 | Progress Note ---
Assessment and Plan - Patient Problems (1) Hypokalemia Current Visit: No Status: Acute Plan to address problem: Severe hypokalemia improving Magnesium is 1.9 which is reasonable has received magnesium supplementation as well We'll supplement intravenously and orally's received 40 mEq of potassium We'll give additional 140 mEq total today Recheck labs in a.m. We'll sign off (2) Pyelonephritis affecting in second trimester Current Visit: No Status: Acute Plan to address problem: Pyelonephritis Continue antibiotics (3) Hydronephrosis Current Visit: Yes Status: Acute Plan to address problem: Hydronephrosis This may be secondary to the in the setting of such hormonal changes anatomical changes There are no stones noted on ultrasound Reasonable to follow clinically Urology evaluation if necessary Subjective Principal diagnosis: Hypokalemia Interval history: 29-year-old lady in 22 weeks gestation admitted with complaints of lower back pain patient has previous history of urinary tract infections and has been treated for this in the past. She had renal ultrasound with some clots some concern for moderate hydronephrosis labs significant for severe hypokalemia nephrology consulted she has had difficulty with urination, poor appetite Patient seen today reports nausea is much improved Continue potassium supplementation Objective - Vital Signs Vital signs: Vital Signs - 12hr 09/29/19 09/29/19 09/29/19 06:37 08:38 08:42 Temperature 99.1 F 98.4 F Pulse Rate 99 H Blood Pressure 109/54 O2 Sat by Pulse Oximetry 09/29/19 09/29/19 09/29/19 09:48 12:01 12:32 Temperature 98.3 F 98.9 F Pulse Rate 102 H Blood Pressure 113/58 O2 Sat by Pulse Oximetry 09/29/19 09/29/19 09/29/19 13:00 13:01 13:03 Temperature Pulse Rate 102 H 102 H 99 H Blood Pressure 74/41 75/54 76/49 O2 Sat by Pulse Oximetry 09/29/19 09/29/19 09/29/19 13:04 13:06 13:09 Temperature Pulse Rate 101 H 101 H 106 H Blood Pressure 77/47 92/54 96/53 O2 Sat by Pulse Oximetry 09/29/19 09/29/19 09/29/19 13:12 13:13 13:18 Temperature Pulse Rate 103 H 103 H 101 H Blood Pressure 95/54 O2 Sat by Pulse 97 98 Oximetry 09/29/19 09/29/19 09/29/19 13:23 13:28 13:29 Temperature Pulse Rate 108 H 54 L Blood Pressure O2 Sat by Pulse 97 67 L 71 L Oximetry 09/29/19 09/29/19 09/29/19 13:33 13:38 13:43 Temperature Pulse Rate 106 H 107 H 106 H Blood Pressure O2 Sat by Pulse 96 96 97 Oximetry 09/29/19 09/29/19 09/29/19 13:48 13:53 13:57 Temperature Pulse Rate 104 H 113 H 103 H Blood Pressure 109/55 O2 Sat by Pulse 97 96 Oximetry 09/29/19 13:58 Temperature Pulse Rate 108 H Blood Pressure O2 Sat by Pulse 96 Oximetry - General Appearance General appearance: well-developed, well-nourished EENT: ATNC, PERRL, mucous membranes moist Neck: no JVD Respiratory: Present: Clear to Ascultation Cardiology: regular, S1S2 Gastrointestinal: normal, normoactive bowel sounds Integumentary: no rash Neurologic: alert and oriented x3 Psychiatric: mood/affect appropriate - Lab 09/28/19 09:18 09/29/19 06:07 Most recent lab results Calcium 8.1 mg/dL (8.4-10.2) L 09/29/19 06:07 Magnesium 1.90 mg/dL (1.7-2.3) 09/28/19 13:26 - Imaging Kidney/bladder ultrasound: other (right-sided hydronephrosis) Medications & Allergies - Medications Allergies/Adverse Reactions: Allergies No Known Allergies Allergy (Verified 09/28/19 06:28) Home Medications: Home Medications Medication Instructions Recorded Confirmed Last Taken Type Doxylamine Succinate [Unisom] 25 mg PO QHS PRN #30 tablet 08/10/19 Unknown Rx Potassium Chloride [K-Dur] 40 meq PO BID #10 tablet 08/10/19 Unknown Rx Pyridoxine HCl (Vitamin B6) 25 mg PO Q6HR PRN #30 tablet 08/10/19 Unknown Rx [Pyridoxine HCl] Active Medications: Generic Name Dose Route Start Last Admin Trade Name Freq PRN Reason Stop Dose Admin Acetaminophen 650 mg 09/28/19 09:00 Tylenol PO Q4H PRN Pain MILD(1-3)/Fever >100.5/MARSHALL Docusate Sodium 100 mg 09/28/19 09:00 Colace PO Q12H PRN Constipation Hydromorphone HCl 2 mg 09/28/19 09:15 09/28/19 11:46 Dilaudid IV 2 mg Q4H PRN Administration Pain , Severe (7-10) Dextrose/Lactated Ringer's 1,000 mls @ 125 mls/hr 09/28/19 09:00 09/29/19 10:11 D5lr IV 125 mls/hr DIRECT CESAR Administration Ampicillin Sodium 2 gm in 100 mls @ 100 mls/hr 09/28/19 10:00 09/29/19 09:59 Ampicillin/Ns 2 Gm/100 Ml IV 100 mls/hr Q4H CESAR Administration Protocol Potassium Chloride 10 meq in 100 mls @ 100 mls/hr 09/29/19 09:00 09/29/19 1 0:10 Kcl 10meq/100ml IV 100 mls/hr Q1H PRN Administration Potassium 2.6-2.9 mEq/L Potassium Chloride 10 meq in 100 mls @ 100 mls/hr 09/29/19 14:00 Kcl 10meq/100ml IV 09/29/19 17:59 Q1H CESAR Multivitamins/Iron/Calcium 1 each 09/28/19 10:00 Vitamin PO QDAY CESAR Ondansetron HCl 4 mg 09/28/19 09:33 09/28/19 10:39 Zofran IV 4 mg Q4H PRN Administration Nausea And Vomiting Potassium Chloride 60 meq 09/28/19 19:00 09/29/19 06:23 K-Dur PO 60 meq QDAY CESAR Administration
[2019-09-29] MEDS ORDERED: DEXTROSE 50% IN WATER (25GM) 50 ML SYRINGE IV ONE (22:28)
[2019-09-30] MEDS: AMPICILLIN/NS 2 GM/100 ML 2 GM/100 ML BAG IV SCH ×4 (01:58→22:15)
[2019-09-30 05:54] LABS: Alanine Aminotransferase 8 units/L (7-56); Albumin 2.7 g/dL (3.9-5); BUN/Creatinine Ratio 6; Blood Urea Nitrogen 3 mg/dL (7-17); Calcium 8.3 mg/dL (8.4-10.2); Hemolysis Index 0
[2019-09-30] MEDS: POTASSIUM CHLORIDE 10 MEQ 10 MEQ/100 ML BAG IV PRN ×2 (06:36→11:15)
[2019-09-30] MEDS: PRENATAL VIT27-FE FUMARATE-FOLIC ACID VIT TAB PO SCH ×2 (11:15→15:39)
--- NOTE | 2019-09-30 13:35 | Progress Note ---
Assessment and Plan - Patient Problems (1) Pyelonephritis affecting in second trimester Current Visit: No Status: Acute Plan to address problem: Orders were given for urine and blood cultures, cbc, cmp, D5LR, WILVER, Admit to in-patient. OB US, Kidney and bladder US. Consult to MFM and nephrology. MFM and Nephrology and Hospitalist consults reviewed and noted with thanks. [Most recent potassium level 3.5/L. Urine culture positive for gram negative rods: sensitive to AMPICILLIN. Observe overnight and for likely discharge in the a.m.] Subjective - Subjective Date of service: 09/30/19 Principal diagnosis: Hypokalemia Interval history: 29 yr old at 22 weeks gestation. RICKIE 01/27/2020. Complaining of difficulty with urination, poor appetite, suprapubic pain, bilateral loin pains. She denied fever and chills. Patient was treated for pyelonephritis about 4 wks ago here at [facility] and described her state now as how she felt then. She stated her fetus was normally-active with no leakage of fluids or bleeding per vaginam. Today, 09/30/2019, patient reports feeling better without the abd pains from yesterday. Appetite better. Looking forward to going to work in 2 days. Patient reports: movement normal, no new complaints, no loss of fluid, no vaginal bleeding, no contractions Objective - Vital Signs Vital Signs: Vital Signs - 12hr 09/30/19 09/30/19 09/30/19 07:45 07:53 12:29 Temperature 97.4 F L Pulse Rate 87 91 H Respiratory 16 Rate Blood Pressure 122/53 101/55 O2 Sat by Pulse 93 Oximetry 09/30/19 09/30/19 09/30/19 12:30 12:31 12:35 Temperature Pulse Rate 93 H Respiratory Rate Blood Pressure O2 Sat by Pulse 88 94 99 Oximetry - Exam Lungs: Normal air movement FHR: auscultation normal Deep Tendon Reflex Grade: Normal +2 - Labs Labs: Abnormal Labs 09/28/19 09/28/19 09/28/19 06:43 09:18 09:18 WBC 14.9 H RBC 3.54 L MCH 33 H MCHC 36 H Seg Neuts % (Manual) 89.0 H Lymphocytes % (Manual) 7.0 L Seg Neutrophils # Man 13.3 H Lymphocytes # (Manual) 1.0 L Sodium 134 L Potassium 2.5 L* Chloride 97.2 L Carbon Dioxide 18 L BUN 4 L Creatinine 0.6 L Glucose Calcium Total Protein Albumin 3.3 L Urine WBC (Auto) > 182.0 H 09/28/19 09/29/19 09/30/19 13:26 06:07 05:00 WBC RBC MCH MCHC Seg Neuts % (Manual) Lymphocytes % (Manual) Seg Neutrophils # Man Lymphocytes # (Manual) Sodium 136 L Potassium 2.5 L* 2.9 L* 3.5 L D Chloride Carbon Dioxide 21 L BUN 3 L 3 L Creatinine 0.6 L 0.5 L Glucose 108 H Calcium 8.1 L 8.3 L Total Protein 5.0 L D Albumin 2.7 L Urine WBC (Auto) Laboratory Results - last 24 hr 09/30/19 05:00 Sodium 138 Potassium 3.5 L D Chloride 105.8 Carbon Dioxide 23 Anion Gap 13 BUN 3 L Creatinine 0.5 L Estimated GFR > 60 BUN/Creatinine Ratio 6 Glucose 97 Calcium 8.3 L Total Bilirubin 0.20 AST 11 ALT 8 Alkaline Phosphatase 69 Total Protein 5.0 L D Albumin 2.7 L Albumin/Globulin Ratio 1.2
--- NOTE | 2019-09-30 18:07 | Progress Note ---
Assessment and Plan Assessment and plan: --Hypokalemia; corrected Potassium levels today 4.3 Magnesium 1.9 --Patient has history of chronic hypokalemia Takes 40 mEq K. Dur twice a day at home Patient advised to continue the same Follow-up with calibration technician in 2 to 3 days after discharge --Acute gastritis; probably related Antiemetics, supportive care Patient's potassium and magnesium levels are within normal limits Medically stable to be discharged home Again advised to continue scheduled 40 mEq twice a day Check potassium levels in 2 days at calibration technician/PMD office Plan of care discussed with the patient and her nurse Medically stable for discharge Thank you for this consultation I will sign off, call us with any questions or concerns History Interval history: Hospitalist service was consulted for management of hypokalemia Patient's repeat potassium and magnesium levels are within normal limits today Patient seen and examined medical records reviewed Patient complains of mild nausea on antiemetics Vital signs reviewed Hospitalist Physical - Constitutional Vitals: Temp Pulse Resp BP Pulse Ox 98.8 F 93 H 14 109/54 97 09/30/19 17:10 09/30/19 17:11 09/30/19 17:10 09/30/19 17:08 09/30/19 17:11 General appearance: Present: no acute distress, well-nourished, obese - EENT Eyes: Present: PERRL, EOM intact - Neck Neck: Present: supple, normal ROM - Respiratory Respiratory effort: normal Respiratory: negative: rales, rhonchi, wheezing - Cardiovascular Rhythm: regular Heart Sounds: Present: S1 & S2 - Extremities Extremities: no ischemia, No edema - Abdominal General gastrointestinal: soft, non-tender, non-distended, normal bowel sounds, other ( uterus) - Integumentary Integumentary: Present: clear, warm - Psychiatric Psychiatric: appropriate mood/affect, cooperative - Neurologic Neurologic: moves all extremities Results - Labs CBC & Chem 7: 09/28/19 09:18 09/30/19 17:16 Labs: Laboratory Last Values WBC 14.9 K/mm3 (4.5-11.0) H 09/28/19 09:18 RBC 3.54 M/mm3 (3.65-5.03) L 09/28/19 09:18 Hgb 11.6 gm/dl (10.1-14.3) 09/28/19 09:18 Hct 32.6 % (30.3-42.9) 09/28/19 09:18 MCV 92 fl (79-97) 09/28/19 09:18 MCH 33 pg (28-32) H 09/28/19 09:18 MCHC 36 % (30-34) H 09/28/19 09:18 RDW 13.4 % (13.2-15.2) 09/28/19 09:18 Plt Count 195 K/mm3 (140-440) 09/28/19 09:18 Add Manual Diff Complete 09/28/19 09:18 Total Counted 100 09/28/19 09:18 Seg Neuts % (Manual) 89.0 % (40.0-70.0) H 09/28/19 09:18 Band Neutrophils % 0 % 09/28/19 09:18 Lymphocytes % (Manual) 7.0 % (13.4-35.0) L 09/28/19 09:18 Reactive Lymphs % (Man) 0 % 09/28/19 09:18 Monocytes % (Manual) 4.0 % (0.0-7.3) 09/28/19 09:18 Eosinophils % (Manual) 0 % (0.0-4.3) 09/28/19 09:18 Basophils % (Manual) 0 % (0.0-1.8) 09/28/19 09:18 Metamyelocytes % 0 % 09/28/19 09:18 Myelocytes % 0 % 09/28/19 09:18 Promyelocytes % 0 % 09/28/19 09:18 Blast Cells % 0 % 09/28/19 09:18 Nucleated RBC % Not Reportable 09/28/19 09:18 Seg Neutrophils # Man 13.3 K/mm3 (1.8-7.7) H 09/28/19 09:18 Band Neutrophils # 0.0 K/mm3 09/28/19 09:18 Lymphocytes # (Manual) 1.0 K/mm3 (1.2-5.4) L 09/28/19 09:18 Abs React Lymphs (Man) 0.0 K/mm3 09/28/19 09:18 Monocytes # (Manual) 0.6 K/mm3 (0.0-0.8) 09/28/19 09:18 Eosinophils # (Manual) 0.0 K/mm3 (0.0-0.4) 09/28/19 09:18 Basophils # (Manual) 0.0 K/mm3 (0.0-0.1) 09/28/19 09:18 Metamyelocytes # 0.0 K/mm3 09/28/19 09:18 Myelocytes # 0.0 K/mm3 09/28/19 09:18 Promyelocytes # 0.0 K/mm3 09/28/19 09:18 Blast Cells # 0.0 K/mm3 09/28/19 09:18 WBC Morphology Not Reportable 09/28/19 09:18 Hypersegmented Neuts Not Reportable 09/28/19 09:18 Hyposegmented Neuts Not Reportable 09/28/19 09:18 Hypogranular Neuts Not Reportable 09/28/19 09:18 Smudge Cells Not Reportable 09/28/19 09:18 Toxic Granulation Not Reportable 09/28/19 09:18 Toxic Vacuolation Not Reportable 09/28/19 09:18 Dohle Bodies Not Reportable 09/28/19 09:18 Pelger-Huet Anomaly Not Reportable 09/28/19 09:18 Nir Rods Not Reportable 09/28/19 09:18 Platelet Estimate Consistent w auto 09/28/19 09:18 Clumped Platelets Not Reportable 09/28/19 09:18 Plt Clumps, EDTA Not Reportable 09/28/19 09:18 Large Platelets Not Reportable 09/28/19 09:18 Giant Platelets Not Reportable 09/28/19 09:18 Platelet Satelliting Not Reportable 09/28/19 09:18 Plt Morphology Comment Not Reportable 09/28/19 09:18 RBC Morphology Normal 09/28/19 09:18 Dimorphic RBCs Not Reportable 09/28/19 09:18 Polychromasia Not Reportable 09/28/19 09:18 Hypochromasia Not Reportable 09/28/19 09:18 Poikilocytosis Not Reportable 09/28/19 09:18 Anisocytosis Not Reportable 09/28/19 09:18 Microcytosis Not Reportable 09/28/19 09:18 Macrocytosis Not Reportable 09/28/19 09:18 Spherocytes Not Reportable 09/28/19 09:18 Pappenheimer Bodies Not Reportable 09/28/19 09:18 Sickle Cells Not Reportable 09/28/19 09:18 Target Cells Not Reportable 09/28/19 09:18 Tear Drop Cells Not Reportable 09/28/19 09:18 Ovalocytes Not Reportable 09/28/19 09:18 Helmet Cells Not Reportable 09/28/19 09:18 [place] Bodies Not Reportable 09/28/19 09:18 Harvey Rings Not Reportable 09/28/19 09:18 Monarch Cells Not Reportable 09/28/19 09:18 Bite Cells Not Reportable 09/28/19 09:18 Crenated Cell Not Reportable 09/28/19 09:18 Elliptocytes Not Reportable 09/28/19 09:18 Acanthocytes (Spur) Not Reportable 09/28/19 09:18 Rouleaux Not Reportable 09/28/19 09:18 Hemoglobin C Crystals Not Reportable 09/28/19 09:18 Schistocytes Not Reportable 09/28/19 09:18 Malaria parasites Not Reportable 09/28/19 09:18 Satnam Bodies Not Reportable 09/28/19 09:18 Hem Pathologist Commnt No 09/28/19 09:18 Sodium 138 mmol/L (137-145) 09/30/19 05:00 Potassium 4.3 mmol/L (3.6-5.0) D 09/30/19 17:16 Chloride 105.8 mmol/L (98-107) 09/30/19 05:00 Carbon Dioxide 23 mmol/L (22-30) 09/30/19 05:00 Anion Gap 13 mmol/L 09/30/19 05:00 BUN 3 mg/dL (7-17) L 09/30/19 05:00 Creatinine 0.5 mg/dL (0.7-1.2) L 09/30/19 05:00 Estimated GFR > 60 ml/min 09/30/19 05:00 BUN/Creatinine Ratio 6 % 09/30/19 05:00 Glucose 97 mg/dL (65-100) 09/30/19 05:00 Calcium 8.3 mg/dL (8.4-10.2) L 09/30/19 05:00 Magnesium 1.90 mg/dL (1.7-2.3) 09/30/19 17:16 Total Bilirubin 0.20 mg/dL (0.1-1.2) 09/30/19 05:00 AST 11 units/L (5-40) 09/30/19 05:00 ALT 8 units/L (7-56) 09/30/19 05:00 Alkaline Phosphatase 69 units/L (35-129) 09/30/19 05:00 Total Protein 5.0 g/dL (6.3-8.2) L D 09/30/19 05:00 Albumin 2.7 g/dL (3.9-5) L 09/30/19 05:00 Albumin/Globulin Ratio 1.2 % 09/30/19 05:00 Urine Color Lori (Yellow) 09/28/19 06:43 Urine Turbidity Cloudy (Clear) 09/28/19 06:43 Urine pH 6.0 (5.0-7.0) 09/28/19 06:43 Ur Specific [place] 1.011 (1.003-1.030) 09/28/19 06:43 Urine Protein 100 mg/dl mg/dL (Negative) 09/28/19 06:43 Urine Glucose (UA) Neg mg/dL (Negative) 09/28/19 06:43 Urine Ketones 20 mg/dL (Negative) 09/28/19 06:43 Urine Blood Sm (Negative) 09/28/19 06:43 Urine Nitrite Pos (Negative) 09/28/19 06:43 Urine Bilirubin Neg (Negative) 09/28/19 06:43 Urine Urobilinogen 4.0 mg/dL (<2.0) 09/28/19 06:43 Ur Leukocyte Esterase Mod (Negative) 09/28/19 06:43 Urine WBC (Auto) > 182.0 /HPF (0.0-6.0) H 09/28/19 06:43 Urine RBC (Auto) 25.0 /HPF (0.0-6.0) 09/28/19 06:43 U Epithel Cells (Auto) 1.0 /HPF (0-13.0) 09/28/19 06:43 Urine Bacteria (Auto) 2+ /HPF (Negative) 09/28/19 06:43 Urine WBC Clumps 3+ /HPF 09/28/19 06:43 Urine Mucus 2+ /HPF 09/28/19 06:43 Active Medications - Current Medications Current Medications: Generic Name Dose Route Start Last Admin Trade Name Freq PRN Reason Stop Dose Admin Acetaminophen 650 mg 09/28/19 09:00 Tylenol PO Q4H PRN Pain MILD(1-3)/Fever >100.5/MARSHALL Docusate Sodium 100 mg 09/28/19 09:00 Colace PO Q12H PRN Constipation Hydromorphone HCl 2 mg 09/28/19 09:15 09/28/19 11:46 Dilaudid IV 2 mg Q4H PRN Administration Pain , Severe (7-10) Dextrose/Lactated Ringer's 1,000 mls @ 125 mls/hr 09/28/19 09:00 09/29/19 10:11 D5lr IV 125 mls/hr DIRECT CESAR Administration Ampicillin Sodium 2 gm in 100 mls @ 100 mls/hr 09/28/19 10:00 09/30/19 16:50 Ampicillin/Ns 2 Gm/100 Ml IV 100 mls/hr Q4H CESAR Administration Protocol Multivitamins/Iron/Calcium 1 each 09/28/19 10:00 09/30/19 15:39 Vitamin PO 1 each QDAY CESAR Administration Ondansetron HCl 4 mg 09/28/19 09:33 09/28/19 10:39 Zofran IV 4 mg Q4H PRN Administration Nausea And Vomiting
[2019-09-30] MEDS: POTASSIUM CHLORIDE ER 20 MEQ TAB PO SCH (22:15)
[2019-10-01] MEDS: AMPICILLIN/NS 2 GM/100 ML 2 GM/100 ML BAG IV SCH ×2 (01:37→05:00)
[2019-10-01] MEDS: PRENATAL VIT27-FE FUMARATE-FOLIC ACID VIT TAB PO SCH (11:34)
[2019-10-01] MEDS: POTASSIUM CHLORIDE ER 20 MEQ TAB PO SCH (11:34)
--- NOTE | 2019-10-01 12:36 | Discharge Summary ---
Providers - Providers Date of Admission: 09/28/19 18:52 Attending physician: VIRGINIA SANDERSON 09/28/19 08:17 Consult to Physician [CONS] Routine Comment: Consulting Provider: SJ PRESLEY Physician Instructions: Reason For Exam: IUP @ 22 week; pyelonephritis Consult to Physician [CONS] Urgent Comment: Consulting Provider: MALLIKA MARTIN Physician Instructions: Reason For Exam: pylonephritis 09/28/19 11:38 Consult to Physician [CONS] Stat Comment: DR MOROCHO WILL CALL TO SPEAK TO MD DIRECTLY Consulting Provider: KACY IBANEZ Physician Instructions: HOSPITALIST CONSULT Reason For Exam: 22 WEEK PYELONEPRHITIS/ POTASSIUM 2.5 Primary care physician: VIRGINIA SANDERSON Hospitalization Reason for admission: other (pyelonephritis) Procedure: other (IV antibiotics) Discharge diagnosis: other (pyelonephritis) Condition at discharge: Stable Disposition: DC-01 TO HOME OR SELFCARE Plan - Discharge Medications Prescriptions: Ampicillin 500 mg PO Q6H 30 Days #120 capsule - Provider Discharge Summary Additional instructions: [] Smoking cessation referral if applicable(refer to patient education folder for contact #) [] Refer to [facility]'s [facility] Booklet Call your doctor immediately for: * Fever > 100.5 * Heavy vaginal bleeding ( >1 pad per hour) * Severe persistent headache * Shortness of breath * Reddened, hot, painful area to leg or breast * Drainage or odor from incision. * Keep incision clean and dry at all times and follow doctor's instructions regarding bathing/showering - Follow up plan Follow up: IVRGINIA SANDERSON MD [Primary Care Provider] - 7 Days
--- NOTE | 2019-10-01 12:57 | Progress Note ---
Assessment and Plan pyelonephritis hypokalemia: resolved d/c home on PO abx and potassium FUP in one week OB clinic Maternal/ well being reassuring at bedside Keshav Feliz MD Subjective - Subjective Date of service: 10/01/19 Principal diagnosis: Hypokalemia, recurrent pyelonephritis Interval history: Patient sitting up at bedside eating lunch no complaints discussed D/C planning with rx ampicillin and potassium sent to pharmacy no OB complaints: GFM, no LOF, no VB no CTX Patient reports: movement normal, no new complaints, no loss of fluid, no vaginal bleeding, no contractions Objective - Vital Signs Vital Signs: Vital Signs - 12hr 10/01/19 10/01/19 04:00 08:32 Temperature 98.3 F Pulse Rate 81 Blood Pressure 109/57 - Exam Breasts: deferred Cardiovascular: Regular rate Lungs: Clear to auscultation Abdomen: Present: normal appearance FHR: category 1 Uterine Contraction Monitor Mode: External Uterine Contraction Pattern: Absent Deep Tendon Reflex Grade: Normal +2 - Labs Labs: Abnormal Labs 09/28/19 09/28/19 09/28/19 06:43 09:18 09:18 WBC 14.9 H RBC 3.54 L MCH 33 H MCHC 36 H Seg Neuts % (Manual) 89.0 H Lymphocytes % (Manual) 7.0 L Seg Neutrophils # Man 13.3 H Lymphocytes # (Manual) 1.0 L Sodium 134 L Potassium 2.5 L* Chloride 97.2 L Carbon Dioxide 18 L BUN 4 L Creatinine 0.6 L Glucose Calcium Total Protein Albumin 3.3 L Urine WBC (Auto) > 182.0 H 09/28/19 09/29/19 09/30/19 13:26 06:07 05:00 WBC RBC MCH MCHC Seg Neuts % (Manual) Lymphocytes % (Manual) Seg Neutrophils # Man Lymphocytes # (Manual) Sodium 136 L Potassium 2.5 L* 2.9 L* 3.5 L D Chloride Carbon Dioxide 21 L BUN 3 L 3 L Creatinine 0.6 L 0.5 L Glucose 108 H Calcium 8.1 L 8.3 L Total Protein 5.0 L D Albumin 2.7 L Urine WBC (Auto) Laboratory Results - last 24 hr 09/30/19 17:16 Potassium 4.3 D Magnesium 1.90
[2019-10-01 13:01] VITALS: BP 116/63
== END 2019-10-01 13:15 | disposition home or self-care (01) | DRG 832 ==
LOC: TRG 06:16 → LD 10:02 → TRG 18:52 → LD 18:52 → OBSVTOIN 18:52
PROVIDERS: ADMIT Obstetrics & Gynecology; ATTEND Obstetrics & Gynecology
DX: O23.02 Infections of kidney in pregnancy, second trimester (principal); N13.6 Pyonephrosis; O99.282 Endocrine, nutritional and metabolic diseases complicating pregnancy, second trimester; O99.612 Diseases of the digestive system complicating pregnancy, second trimester; E87.6 Hypokalemia; K29.00 Acute gastritis without bleeding
CPT/HCPCS: 36415; 76770; 76815; 80048; 80053; 81001; 83735; 84132; 85007; 85025; 87040; 87076; 87086; 87186; 93005; 93010; G0378; J0290; J1170; J2405; J3475; J3480; J7120; J7121

== ENCOUNTER 2019-10-05 15:23 | Inpatient (IN) | payer OTHER ==
[2019-10-05 16:43] LABS: Basophils % (Auto) 0.2 % (0.0-1.8); Eosinophils # (Auto) 0.1 K/mm3 (0.0-0.4); Eosinophils % (Auto) 1.1 % (0.0-4.3); Hematocrit 36.1 % (30.3-42.9); Hemoglobin 12.4 gm/dl (10.1-14.3); Lymphocytes # (Auto) 2.1 K/mm3 (1.2-5.4); Lymphocytes % (Auto) 19.3 % (13.4-35.0); Mean Corpuscular HGB Conc 34 % (30-34); Mean Corpuscular Volume 94 fl (79-97); Monocytes # (Auto) 0.7 K/mm3 (0.0-0.8); Monocytes % (Auto) 6.8 % (0.0-7.3); Platelet Count 377 K/mm3 (140-440); Red Blood Count 3.86 M/mm3 (3.65-5.03); Red Cell Distribution Width 13.8 % (13.2-15.2)
[2019-10-05 17:01] LABS: Alanine Aminotransferase 39 units/L (7-56); Albumin 3.6 g/dL (3.9-5); BUN/Creatinine Ratio 8; Blood Urea Nitrogen 4 mg/dL (7-17); Hemolysis Index 6
[2019-10-05] MEDS ORDERED: ONDANSETRON 4 MG/2 ML INJ IV PRN ×2 (17:07→17:24)
--- NOTE | 2019-10-05 17:18 | History and Physical Report ---
History of Present Illness Date of examination: 10/05/19 Date of admission: 10/05/2019 Chief complaint: Nausea and vomiting since leaving hospital 3 days ago. History of present illness: Nausea and vomiting since leaving hospital 3 days ago. 23 weeks gestation and was managed in the hospital till 4 days ago for pyelonephritis. Was sent home on Amoxicillin but unable to keep down due to n/v. Afebrile and denied the suprapubic and loins pains she had last week. Fetus is active. no ROM or vag bleeding. Past History - Obstetrical History : 3 Medications and Allergies Allergies Allergy/AdvReac Type Severity Reaction Status Date / Time No Known Allergies Allergy Verified 09/28/19 06:28 Home Medications Medication Instructions Recorded Confirmed Last Taken Type Doxylamine Succinate [Unisom] 25 mg PO QHS PRN #30 tablet 08/10/19 10/01/19 Unknown Rx Potassium Chloride [K-Dur] 40 meq PO BID #10 tablet 08/10/19 10/01/19 10/01/19 Rx Pyridoxine HCl (Vitamin B6) 25 mg PO Q6HR PRN #30 tablet 08/10/19 10/01/19 08/03/19 Rx [Pyridoxine HCl] Ampicillin 500 mg PO Q6H 30 Days #120 capsule 10/01/19 Unknown Rx Active Meds: Active Medications Lactated Ringer's (Lactated Ringers) 1,000 mls @ 125 mls/hr IV DIRECT CESAR Ondansetron HCl (Zofran) 4 mg IV Q4H PRN PRN Reason: Nausea And Vomiting Review of Systems All systems: negative Respiratory: no cough Gastrointestinal: nausea, vomiting Genitourinary: deferred, no vaginal bleeding, no leakage of fluid, no dysuria, no pelvic pain - Vital Signs Vital signs: Vital Signs Pulse Pulse Ox 92 H 100 10/05/19 16:35 10/05/19 16:35 Temp Pulse Resp BP Pulse Ox 89 130/75 99 10/05/19 17:10 10/05/19 16:36 10/05/19 17:10 - Physical Exam Lungs: Positive: Normal air movement Abdomen: Positive: soft, distention. Negative: tenderness, guarding - Obstetrical FHR: auscultation normal, category 1 Uterine Contraction Pattern: Absent Results Result Diagrams: 10/05/19 16:24 10/05/19 16:24 Abnormal lab results 10/05/19 10/05/19 Range/Units 16:24 16:24 Seg Neutrophils % 72.6 H (40.0-70.0) % Sodium 136 L (137-145) mmol/L Potassium 3.4 L D (3.6-5.0) mmol/L Carbon Dioxide 21 L (22-30) mmol/L BUN 4 L (7-17) mg/dL Creatinine 0.5 L (0.7-1.2) mg/dL Albumin 3.6 L (3.9-5) g/dL All other labs normal. Assessment and Plan - Patient Problems (1) Pyelonephritis affecting in second trimester Current Visit: No Status: Acute Plan to address problem: Will manage n/v with zofran and if keeping oral intake down after sufficient obs, possible she she go home soon.
[2019-10-05] MEDS ORDERED: PROMETHAZINE 50 MG RECT SUPP PR PRN (17:42)
[2019-10-05] MEDS ORDERED: AMPICILLIN 500 MG CAP PO SCH (18:00)
[2019-10-05] MEDS: LACTATED RINGERS 1,000 ML IV SCH (19:10)
[2019-10-05] MEDS: POTASSIUM CHLORIDE ER 20 MEQ TAB PO SCH (20:33)
[2019-10-05] MEDS: AMPICILLIN/NS 1 GM/50 ML 1 GM/50 ML BAG IV SCH (21:37)
[2019-10-05] MEDS: POTASSIUM CHLORIDE 10 MEQ in SODIUM CHLORIDE 0.9% 1000 ML 1,000 ML IV SCH (21:38)
[2019-10-06] MEDS: AMPICILLIN/NS 1 GM/50 ML 1 GM/50 ML BAG IV SCH ×3 (03:43→21:28)
[2019-10-06] MEDS: POTASSIUM CHLORIDE 10 MEQ in SODIUM CHLORIDE 0.9% 1000 ML 1,000 ML IV SCH (05:25)
[2019-10-06] MEDS: POTASSIUM CHLORIDE ER 20 MEQ TAB PO SCH (10:39)
--- NOTE | 2019-10-06 12:45 | Progress Note ---
Assessment and Plan - Patient Problems (1) 23 weeks gestation of Onset Date: 10/06/19 Current Visit: Yes Status: Acute Plan to address problem: A: IUP @ 23 6/7 weeks Hyperemesis Hypokalemia P: Continue IV hydration and IV antiemetics (2) Hyperemesis gravidarum, mild, before 23rd week Onset Date: 10/06/19 Current Visit: Yes Status: Acute (3) Hypokalemia Onset Date: 10/06/19 Current Visit: No Status: Acute Subjective - Subjective Date of service: 10/06/19 Principal diagnosis: IUP @ 23 6/7 weeks; Nausea and vomiting Interval history: Nausea and vomiting since leaving hospital 4 days ago. IUP @ 23 6/7weeks gestation and was managed in the hospital till 4 days ago for pyelonephritis. She was sent home on Amoxicillin but unable to keep it down due to n/v. Afebrile and denied suprapubic and pelvic pains she had last week. Fetus is active. no ROM or vag bleeding. Patient reports: movement normal, no new complaints, no loss of fluid, no vaginal bleeding, no contractions Objective - Vital Signs Vital Signs: Vital Signs - 12hr 10/06/19 10/06/19 10/06/19 01:25 01:26 10:08 Pulse Rate 78 78 81 Blood Pressure 105/56 126/69 Blood Pressure 105/56 [Right] - Exam Abdomen: Present: normal appearance, soft Uterus: Present: normal FHR: category 1 Uterine Contraction Monitor Mode: External Uterine Contraction Pattern: Absent - Labs Labs: Abnormal Labs 10/05/19 10/05/19 16:24 16:24 Seg Neutrophils % 72.6 H Sodium 136 L Potassium 3.4 L D Carbon Dioxide 21 L BUN 4 L Creatinine 0.5 L Albumin 3.6 L Laboratory Results - last 24 hr 10/05/19 10/05/19 10/05/19 16:24 16:24 16:31 WBC 10.7 RBC 3.86 Hgb 12.4 Hct 36.1 MCV 94 MCH 32 MCHC 34 RDW 13.8 Plt Count 377 Lymph % (Auto) 19.3 [place] % (Auto) 6.8 Eos % (Auto) 1.1 Baso % (Auto) 0.2 Lymph # 2.1 [place] # 0.7 Eos # 0.1 Baso # 0.0 Seg Neutrophils % 72.6 H Seg Neutrophils # 7.7 Sodium 136 L Potassium 3.4 L D Chloride 101.6 Carbon Dioxide 21 L Anion Gap 17 BUN 4 L Creatinine 0.5 L Estimated GFR > 60 BUN/Creatinine Ratio 8 Glucose 97 Hemoglobin A1c 4.7 Calcium 9.0 Total Bilirubin 0.30 AST 38 ALT 39 Alkaline Phosphatase 86 Total Protein 7.0 Albumin 3.6 L Albumin/Globulin Ratio 1.1
[2019-10-06] MEDS ORDERED: PROMETHAZINE 25 MG RECT SUPP PR PRN (12:50)
[2019-10-06] MEDS: LACTATED RINGERS 1,000 ML IV SCH (17:49)
[2019-10-06 23:23] LABS: Bacteria,Urine 2+ /HPF (Negative); Bilirubin,Urine NEG (Negative); Blood,Urine NEG (Negative); Color,Urine Yellow (Yellow); Protein,Urine <15 mg/dL mg/dL (Negative); Urobilinogen,Urine < 2.0 mg/dL (<2.0)
[2019-10-07] MEDS: POTASSIUM CHLORIDE ER 20 MEQ TAB PO SCH (10:30)
[2019-10-07] MEDS: LACTATED RINGERS 1,000 ML IV SCH (18:05)
--- NOTE | 2019-10-07 20:15 | Progress Note ---
Assessment and Plan - Patient Problems (1) 23 weeks gestation of Onset Date: 10/06/19 Current Visit: Yes Status: Acute Plan to address problem: A: IUP @ 24 0/7 weeks Hyperemesis Hypokalemia - resolved P: Continue IV hydration and IV antiemetics Anticipate discharge in 24 hrs (2) Hyperemesis gravidarum, mild, before 23rd week Onset Date: 10/06/19 Current Visit: Yes Status: Acute (3) Hypokalemia Onset Date: 10/06/19 Current Visit: No Status: Resolved Subjective - Subjective Date of service: 10/07/19 Principal diagnosis: IUP @ 24 0/7 weeks; Nausea and vomiting Interval history: Nausea and vomiting since leaving hospital 5 days ago. IUP @ 24 0/7weeks gestation and was managed in the hospital till 5 days ago for pyelonephritis. She was sent home on Amoxicillin but unable to keep it down due to n/v. Afebrile and denied suprapubic and pelvic pains she had last week. Fetus is active. No ROM or vag bleeding. She is currently on [place] Phenergan, which has helped so far. Patient reports: movement normal, no new complaints, no loss of fluid, no vaginal bleeding, no contractions Objective - Vital Signs Vital Signs: Vital Signs - 12hr 10/07/19 10/07/19 17:59 18:05 Temperature 98.9 F Pulse Rate 97 H Respiratory 14 Rate Blood Pressure 119/64 - Exam FHR: category 1 - Labs Labs: Abnormal Labs 10/05/19 10/05/19 10/06/19 16:24 16:24 22:50 Seg Neutrophils % 72.6 H Sodium 136 L Potassium 3.4 L D Carbon Dioxide 21 L BUN 4 L Creatinine 0.5 L Albumin 3.6 L Urine pH 8.0 H Laboratory Results - last 24 hr 10/06/19 22:50 Urine Color Yellow Urine Turbidity Clear Urine pH 8.0 H Ur Specific [place] 1.006 Urine Protein <15 mg/dl Urine Glucose (UA) Neg Urine Ketones Tr Urine Blood Neg Urine Nitrite Neg Urine Bilirubin Neg Urine Urobilinogen < 2.0 Ur Leukocyte Esterase Tr Urine WBC (Auto) 3.0 Urine RBC (Auto) 3.0 U Epithel Cells (Auto) 3.0 Urine Bacteria (Auto) 2+
[2019-10-08] MEDS: POTASSIUM CHLORIDE ER 20 MEQ TAB PO SCH (10:51)
[2019-10-08] MEDS: LACTATED RINGERS 1,000 ML IV SCH (11:39)
[2019-10-08 12:54] VITALS: BP 122/66
--- NOTE | 2019-10-08 13:21 | Progress Note ---
Subjective - Subjective Date of service: 10/08/19 Principal diagnosis: IUP @ 24 0/7 weeks; Nausea and vomiting Interval history: Doing well tolerating PO status reassuring for gestational age Plan for d/c to home Rx for Zofran Fup this week [facility] Maternal/ status reassuring overall Keshav Feliz MD Patient reports: movement normal, no new complaints, no loss of fluid, no vaginal bleeding, no contractions Objective - Vital Signs Vital Signs: Vital Signs - 12hr 10/08/19 10/08/19 10/08/19 07:52 07:53 08:22 Temperature 97.8 F Pulse Rate 77 77 81 Respiratory 18 Rate Blood Pressure 106/59 Blood Pressure 106/59 [Right] O2 Sat by Pulse 98 Oximetry 10/08/19 10/08/19 10/08/19 08:27 08:32 08:37 Temperature Pulse Rate 85 84 87 Respiratory Rate Blood Pressure Blood Pressure [Right] O2 Sat by Pulse 97 98 98 Oximetry 10/08/19 10/08/19 10/08/19 08:42 08:47 08:52 Temperature Pulse Rate 82 95 H 79 Respiratory Rate Blood Pressure Blood Pressure [Right] O2 Sat by Pulse 99 99 99 Oximetry 10/08/19 10/08/19 10/08/19 08:57 09:02 09:07 Temperature Pulse Rate 86 82 82 Respiratory Rate Blood Pressure Blood Pressure [Right] O2 Sat by Pulse 100 100 99 Oximetry 10/08/19 10/08/19 10/08/19 09:12 09:17 09:22 Temperature Pulse Rate 83 83 78 Respiratory Rate Blood Pressure Blood Pressure [Right] O2 Sat by Pulse 99 98 99 Oximetry 10/08/19 10/08/19 10/08/19 09:27 09:32 09:37 Temperature Pulse Rate 80 80 81 Respiratory Rate Blood Pressure Blood Pressure [Right] O2 Sat by Pulse 100 99 99 Oximetry 10/08/19 10/08/19 10/08/19 09:42 09:46 09:47 Temperature Pulse Rate 86 52 L 80 Respiratory Rate Blood Pressure Blood Pressure [Right] O2 Sat by Pulse 99 89 99 Oximetry 10/08/19 10/08/19 12:52 12:53 Temperature 97.8 F Pulse Rate 81 80 Respiratory 18 Rate Blood Pressure 122/66 Blood Pressure 122/66 [Right] O2 Sat by Pulse 100 Oximetry - Labs Labs: Abnormal Labs 10/05/19 10/05/19 10/06/19 16:24 16:24 22:50 Seg Neutrophils % 72.6 H Sodium 136 L Potassium 3.4 L D Carbon Dioxide 21 L BUN 4 L Creatinine 0.5 L Albumin 3.6 L Urine pH 8.0 H
== END 2019-10-08 13:37 | disposition home or self-care (01) | DRG 832 ==
LOC: TRG 15:23 → LD 20:34 → OBSVTOIN 10-08 08:38
PROVIDERS: ADMIT Obstetrics & Gynecology; ATTEND Obstetrics & Gynecology
DX: O21.0 Mild hyperemesis gravidarum (principal); O99.282 Endocrine, nutritional and metabolic diseases complicating pregnancy, second trimester; O23.02 Infections of kidney in pregnancy, second trimester; Z3A.23 23 weeks gestation of pregnancy
CPT/HCPCS: 36415; 80053; 81001; 83036; 84132; 85025; G0378; J0290; J2405; J3480; J7030; J7120

== ENCOUNTER 2019-12-05 06:03 | Observation (INO) | payer MEDICAID ==
[2019-12-05 07:36] LABS: Basophils # (Auto) 0.1 K/mm3 (0.0-0.1); Basophils % (Auto) 0.3 % (0.0-1.8); Eosinophils % (Auto) 0.1 % (0.0-4.3); Hematocrit 32.6 % (30.3-42.9); Hemoglobin 11.3 gm/dl (10.1-14.3); Lymphocytes # (Auto) 1.4 K/mm3 (1.2-5.4); Lymphocytes % (Auto) 7.5 % (13.4-35.0); Mean Corpuscular HGB Conc 35 % (30-34); Mean Corpuscular Volume 92 fl (79-97); Monocytes # (Auto) 1.1 K/mm3 (0.0-0.8); Monocytes % (Auto) 5.8 % (0.0-7.3); Platelet Count 190 K/mm3 (140-440); Red Blood Count 3.55 M/mm3 (3.65-5.03); Red Cell Distribution Width 14.3 % (13.2-15.2)
--- NOTE | 2019-12-05 07:52 | Ultrasound Report ---
ULTRASOUND ABDOMEN, LIMITED (RIGHT LOWER QUADRANT) INDICATION: suspected appendicitis. COMPARISON: None available. FINDINGS: There is moderate right hydronephrosis. There is a tubular structure in the right lower quadrant whic h appears to be a thickened appendix measuring 1.2 cm in diameter. No periappendiceal fluid or absces s. Appendiceal wall measures approximately 6 mm. There is also right hydronephrosis of moderate sever ity. IMPRESSION: 1. The findings are suspicious for acute appendicitis. CT may be of benefit for further evaluation. R ight hydronephrosis is seen as well probably related to the but I could not exclude a dista l ureteral stone. Signer Name: Genaro Pham MD Signed: 12/05/2019 7:47 AM Workstation Name: [email or web address]
[2019-12-05 07:57] LABS: Bacteria,Urine 4+ /HPF (Negative); Bilirubin,Urine NEG (Negative); Blood,Urine MOD (Negative); Color,Urine Yellow (Yellow); Mucus,Urine 3+ /HPF; Urobilinogen,Urine < 2.0 mg/dL (<2.0)
[2019-12-05 07:58] LABS: Albumin 3.3 g/dL (3.9-5); BUN/Creatinine Ratio 8; Blood Urea Nitrogen 4 mg/dL (7-17); Calcium 8.7 mg/dL (8.4-10.2); Hemolysis Index 5
[2019-12-05 08:04] LABS: Alanine Aminotransferase < 5 units/L (7-56)
[2019-12-05] MEDS: LACTATED RINGERS 1,000 ML IV SCH ×2 (09:11→11:30)
[2019-12-05] MEDS ORDERED: HYDROmorphone 1 MG/1 ML INJ IV PRN ×2 (09:35→11:00)
--- NOTE | 2019-12-05 10:03 | Consultation ---
History of Present Illness Consult date: 12/05/19 Reason for consult: abdominal pain Requesting physician: VIRGINIA BRAR Chief complaint: right groin pain - History of present illness History of present illness: 29yo F 32 weeks presents with acute onset of intermittent right groin pain. Began last night. Has not had this before. The pain will alternate between severe and complete resolution. Laying on the right side helps the pain go away. Patient denies back pain. Did have nausea and vomiting last night. However, now the nausea has resolved and the patient is hungry. She has been passing gas and having bowel movements. Denies pain in the rest of the abdomen. Does have a mild odor to the urine and has been going more frequently. Denies any burning sensation. General surgery asked to consult for possible appendicitis. Past History Past Medical History: No medical history Past Surgical History: No surgical history Social history: denies: smoking, alcohol abuse Family history: no significant family history Medications and Allergies Allergies Allergy/AdvReac Type Severity Reaction Status Date / Time No Known Allergies Allergy Verified 09/28/19 06:28 Home Medications Medication Instructions Recorded Confirmed Last Taken Type Doxylamine Succinate [Unisom] 25 mg PO QHS PRN #30 tablet 08/10/19 10/01/19 Unknown Rx Pyridoxine HCl (Vitamin B6) 25 mg PO Q6HR PRN #30 tablet 08/10/19 10/01/19 08/03/19 Rx [Pyridoxine HCl] Ampicillin 500 mg PO Q6H 30 Days #120 capsule 10/01/19 Unknown Rx Ampicillin 500 mg PO Q6H #30 capsule 10/05/19 Unknown Rx Ondansetron [Zofran ODT TAB] 8 mg PO Q8HR PRN #30 tab.rapdis 10/08/19 Unknown Rx Active Meds: Active Medications Hydromorphone HCl (Dilaudid) 2 mg IV Q4H PRN PRN Reason: breakthrough pain > 7/10 Lactated Ringer's (Lactated Ringers) 1,000 mls @ 125 mls/hr IV DIRECT CESAR Last Admin: 12/05/19 09:11 Dose: 800 mls/hr Documented by: Review of Systems - Constitutional no fever, no chills, no chronic pain - Cardiovascular no chest pain, no shortness of breath - Respiratory no cough - Gastrointestinal abdominal pain, nausea, vomiting, no change in bowel habits, no loss of appetite - Genitourinary Genitourinary: urinary frequency - Muskuloskeletal low back pain (mild) - Integumentary no rash, no sores Exam Vital Signs Temp 98.2 F 12/05/19 06:05 - General physical appearance Positive: well developed, well nourished, no distress, no pain, other (laying on right side. Appears comfortable. ) - Eyes Positive: normal occular movement - Respiratory Positive: normal expansion, normal respiratory effort, clear to auscultation - Cardiovascular Rhythm: regular - Abdomen Abdomen: Present: soft, tender (suprapubic, right groin, and right lower quadrant areas. No generalized peritonitis. ), other (). Absent: guarding, rigid, wound, surgical scars - Integumentary no rash, no growths, no abnormal pigmentation - Neurologic Neurologic: alert and oriented to time, place and person - Psychiatric Psychiatric: appropriate mood/affect, intact judgment & insight, cooperative Results - Labs 12/05/19 07:20 12/05/19 07:20 Abnormal lab results 12/05/19 12/05/19 12/05/19 Range/Units 07:00 07:20 07:20 WBC 18.4 H (4.5-11.0) K/mm3 RBC 3.55 L (3.65-5.03) M/mm3 MCHC 35 H (30-34) % Lymph % (Auto) 7.5 L (13.4-35.0) % [place] # 1.1 H (0.0-0.8) K/mm3 Seg Neutrophils % 86.3 H (40.0-70.0) % Seg Neutrophils # 15.9 H (1.8-7.7) K/mm3 Sodium 136 L (137-145) mmol/L Potassium 3.0 L (3.6-5.0) mmol/L Carbon Dioxide 16 L (22-30) mmol/L BUN 4 L (7-17) mg/dL Creatinine 0.5 L (0.7-1.2) mg/dL ALT < 5 L (7-56) units/L Total Protein 6.0 L (6.3-8.2) g/dL Albumin 3.3 L (3.9-5) g/dL Urine WBC (Auto) 94.0 H (0.0-6.0) /HPF Diabetes panel 12/05/19 Range/Units 07:20 Sodium 136 L (137-145) mmol/L Potassium 3.0 L (3.6-5.0) mmol/L Chloride 103.3 (98-107) mmol/L Carbon Dioxide 16 L (22-30) mmol/L BUN 4 L (7-17) mg/dL Creatinine 0.5 L (0.7-1.2) mg/dL Glucose 89 (65-100) mg/dL Calcium 8.7 (8.4-10.2) mg/dL AST 12 (5-40) units/L ALT < 5 L (7-56) units/L Alkaline Phosphatase 93 (35-129) units/L Total Protein 6.0 L (6.3-8.2) g/dL Albumin 3.3 L (3.9-5) g/dL Calcium panel 12/05/19 Range/Units 07:20 Calcium 8.7 (8.4-10.2) mg/dL Albumin 3.3 L (3.9-5) g/dL Pituitary panel 12/05/19 Range/Units 07:20 Sodium 136 L (137-145) mmol/L Potassium 3.0 L (3.6-5.0) mmol/L Chloride 103.3 (98-107) mmol/L Carbon Dioxide 16 L (22-30) mmol/L BUN 4 L (7-17) mg/dL Creatinine 0.5 L (0.7-1.2) mg/dL Glucose 89 (65-100) mg/dL Calcium 8.7 (8.4-10.2) mg/dL Adrenal panel 12/05/19 Range/Units 07:20 Sodium 136 L (137-145) mmol/L Potassium 3.0 L (3.6-5.0) mmol/L Chloride 103.3 (98-107) mmol/L Carbon Dioxide 16 L (22-30) mmol/L BUN 4 L (7-17) mg/dL Creatinine 0.5 L (0.7-1.2) mg/dL Glucose 89 (65-100) mg/dL Calcium 8.7 (8.4-10.2) mg/dL Total Bilirubin 0.60 (0.1-1.2) mg/dL AST 12 (5-40) units/L ALT < 5 L (7-56) units/L Alkaline Phosphatase 93 (35-129) units/L Total Protein 6.0 L (6.3-8.2) g/dL Albumin 3.3 L (3.9-5) g/dL - Imaging US - pelvic: report reviewed Assessment and Plan - Patient Problems (1) Abdominal pain complicating Current Visit: Yes Status: Acute Plan to address problem: Pt stable. Ultrasound is suggestive of possible appendicitis, but the clinical history does not appear consistent. On exam patient had resumption of pain when laying on her back. The pain resolved when she rotated back to her right side. The intermittent nature of her pain seems to be inconsistent with appendicitis. The maximum point of pain is her right groin region. Generally, would expect the appendix to be pushed cephalad at this point in the . She seems to be having normal bowel function and is hungry at this time. This is also not consistent with appendicitis. I wonder what role the positive urinalysis plays here. I discussed the case briefly with Dr. Brar. There is also the potential for round ligament syndrome. At this point, we will get an MR of the abdomen and pelvis to further evaluate the problem. I explained to the patient and family the pros and cons of going to surgery without confirmation of appendicitis. We will follow along. Please call with questions. Time=40min
[2019-12-05] MEDS ORDERED: CYCLOBENZAPRINE 10 MG TAB PO PRN (10:30)
--- NOTE | 2019-12-05 10:33 | History and Physical Report ---
History of Present Illness Date of examination: 12/05/19 History of present illness: PT is a at 32.3 weeks today with sudden onset of RLQ pain around 0500 today. No VB. No LOF. Good FM. No complaints of ctxs although some noted on toco. Pain is RLQ anterior. No c/o flank pain. Her pain is worse with certain positions (like standing) and better in others. She notes less po hydration in the last few days as well. No sxs. Increased urin freq but that has been for weeks, not new onset. 1 cm dilated on admission. PT has U/S done which showed possibility of acute appendicitis. Mod right hydro also noted (not stone noted). PT currently notes a mild appetite. WBC in office yesterday was 9 and is 18 today in hospital. Past History Past Medical History: no pertinent history Past Surgical History: other (TAB x 1) Social history: no significant social history - Obstetrical History : 3 Para: 1 Hx # Term Pregnancies: 1 Induced : 1 Number of Living Children: 1 Medications and Allergies Allergies Allergy/AdvReac Type Severity Reaction Status Date / Time No Known Allergies Allergy Verified 09/28/19 06:28 Home Medications Medication Instructions Recorded Confirmed Last Taken Type Doxylamine Succinate [Unisom] 25 mg PO QHS PRN #30 tablet 08/10/19 10/01/19 Unknown Rx Pyridoxine HCl (Vitamin B6) 25 mg PO Q6HR PRN #30 tablet 08/10/19 10/01/19 08/03/19 Rx [Pyridoxine HCl] Ampicillin 500 mg PO Q6H 30 Days #120 capsule 10/01/19 Unknown Rx Ampicillin 500 mg PO Q6H #30 capsule 10/05/19 Unknown Rx Ondansetron [Zofran ODT TAB] 8 mg PO Q8HR PRN #30 tab.rapdis 10/08/19 Unknown Rx Active Meds: Active Medications Cyclobenzaprine HCl (Flexeril) 10 mg PO Q8H PRN PRN Reason: Muscle Spasm Hydromorphone HCl (Dilaudid) 1 mg IV Q4H PRN PRN Reason: breakthrough pain > 7/10 Lactated Ringer's (Lactated Ringers) 1,000 mls @ 125 mls/hr IV DIRECT CESAR Last Admin: 12/05/19 09:11 Dose: 800 mls/hr Documented by: Potassium Chloride (Kcl 10meq/100ml) 10 meq in 100 mls @ 100 mls/hr IV Q1H CESAR Stop: 12/05/19 12:59 Review of Systems All systems: negative (except HPI) - Vital Signs Vital signs: Vital Signs Temp 98.2 F 12/05/19 06:05 Temp Pulse Resp BP Pulse Ox 98.7 F 111 H 22 109/57 12/05/19 10:05 12/05/19 10:10 12/05/19 10:05 12/05/19 10:10 - Physical Exam Abdomen: Positive: normal appearance (uterus not tender. Nonacute abd. Area of pain is right inguinal area.), other (No CVAT B/L) Vulva: both: normal Vagina: Positive: normal moisture - Obstetrical FHR: category 1 Uterine Contraction Monitor Mode: External Cervical Dilatation: 1 Cervical Effacement Percentage: 20 station: -4 Uterine Contraction Pattern: Irregular Results Result Diagrams: 12/05/19 07:20 12/05/19 07:20 Abnormal lab results 12/05/19 12/05/19 12/05/19 Range/Units 07:00 07:20 07:20 WBC 18.4 H (4.5-11.0) K/mm3 RBC 3.55 L (3.65-5.03) M/mm3 MCHC 35 H (30-34) % Lymph % (Auto) 7.5 L (13.4-35.0) % [place] # 1.1 H (0.0-0.8) K/mm3 Seg Neutrophils % 86.3 H (40.0-70.0) % Seg Neutrophils # 15.9 H (1.8-7.7) K/mm3 Sodium 136 L (137-145) mmol/L Potassium 3.0 L (3.6-5.0) mmol/L Carbon Dioxide 16 L (22-30) mmol/L BUN 4 L (7-17) mg/dL Creatinine 0.5 L (0.7-1.2) mg/dL ALT < 5 L (7-56) units/L Total Protein 6.0 L (6.3-8.2) g/dL Albumin 3.3 L (3.9-5) g/dL Urine WBC (Auto) 94.0 H (0.0-6.0) /HPF All other labs normal. Assessment and Plan - Patient Problems (1) Abdominal pain complicating Current Visit: Yes Status: Acute Plan to address problem: I highly suspect round ligament spasm. IVF given. Will gie Dilaudid and also a Flexeril. In light of U/S findings and elevated WBC since yesterday, will get MRI to assess appendix. Case d/w Gen Surg Dr. Thompson. Cervix is unchanged after several hrs. PT is not in labor. Will also order a urine cx as well although location of her pain is atypical for a UTI. (2) Hypokalemia Onset Date: 10/06/19 Current Visit: No Status: Resolved Plan to address problem: KCL ordered.
[2019-12-05] MEDS ORDERED: POTASSIUM CHLORIDE 10 MEQ 10 MEQ/100 ML BAG IV SCH (11:00)
--- NOTE | 2019-12-05 12:40 | Magnetic Resonance Report ---
MR ABDOMEN WITHOUT CONTRAST HISTORY: Suspected appendicitis, right flank pain during TECHNIQUE: Multisequence, multiplanar MRI without contrast. COMPARISON: Ultrasound abdomen limited performed the same day. FINDINGS: The appendix is not confidently identified on MRI. No inflammatory process is identified in the right lower quadrant or pericecal region. Low suspicion for acute appendicitis. There is moderate to severe right hydronephrosis which appears to be secondary to external compressio n from the enlarged uterus. No left hydronephrosis. The kidney parenchyma is unremarkable. Signal characteristics of the liver, biliary system, pancreas, spleen, adrenal glands and visualized bowel loops are within normal limits. An intrauterine is identified in cephalic position. No gross abnormality. The placent a is posterior with no evidence for abruption or previa. Amniotic fluid volume appears normal. There is normal bone marrow signal in the visualized bony structures. The vascular structures are pat ent. No ascites or adenopathy. IMPRESSION: Moderate to severe right hydronephrosis. No evidence for acute appendicitis. See above. Signer Name: Ari David Jr, MD Signed: 12/05/2019 12:35 PM Workstation Name: [id number]
--- NOTE | 2019-12-05 12:50 | Event Note ---
Date: 12/05/19 MR showed no evidence of appendicitis or inflammation in RLQ. Updated patient. Message sent to Dr. Brar. Please call with questions.
[2019-12-05] MEDS ORDERED: oxyCODONE /ACETAMINOPHEN 5-325MG TAB PO PRN (13:08)
[2019-12-05] MEDS ORDERED: POTASSIUM CHLORIDE ER 20 MEQ TAB PO SCH (13:30)
[2019-12-05] MEDS ORDERED: LACTATED RINGERS 500 ML IV ONE (13:55)
[2019-12-05 14:20] VITALS: BP 100/52
--- NOTE | 2019-12-05 14:44 | Event Note ---
Date: 12/05/19 PT seen around 1 hr ago. Dilaudid and Flexeril allowed pt to sleep and helped her for a hr or so but then pain returned. Still isolated to the right inguinal/round lig area. Lying on her right with hips flexed seems to help but is still complaining of a lot of pain. MRI not suggesting of appendicitis. No CVAT. Still feel that it is a round lig spasm. Will cont IVF and analgesia and flexeril until pt is more comfortable. Her [place] on imaging is likely physiologic from the preg but if pain is not improved at all by tomorrow, may need to call . IF pt is here tomorrow am, will also repeat CBC and BMP to follow her WBC and K. Case d/w Gen surg again and he agrees with plan.
== END 2019-12-05 18:07 | disposition home or self-care (01) ==
LOC: TRG 06:03 → LD 06:04
PROVIDERS: ADMIT Obstetrics & Gynecology; ATTEND Obstetrics & Gynecology
DX: O26.893 Other specified pregnancy related conditions, third trimester (principal); E87.6 Hypokalemia; R10.31 Right lower quadrant pain; Z3A.32 32 weeks gestation of pregnancy
CPT/HCPCS: 36415; 74181; 76705; 80053; 81001; 85025; 87086; 96365; 96375; G0378; J1170; J3480; J7120

== ENCOUNTER 2020-01-20 08:04 | Inpatient (IN) | payer MEDICAID ==
[2020-01-20] MEDS ORDERED: AMPICILLIN/NS 2 GM/100 ML 2 GM/100 ML BAG IV ONE ×2 (08:16→08:39)
[2020-01-20] MEDS ORDERED: LACTATED RINGERS 1,000 ML ONE (08:16)
[2020-01-20] MEDS ORDERED: fentaNYL 100 MCG/2 ML INJ ONE (08:33)
[2020-01-20] MEDS ORDERED: LIDOCAINE (2%) 20 MG/1 ML VIAL 20 ML MDV INFILTRATI ONE (08:39)
[2020-01-20] MEDS ORDERED: MINERAL OIL 30 ML ORAL LIQD PO PRN (08:39)
[2020-01-20] MEDS ORDERED: ePHEDrine SULFATE 50 MG/1 ML INJ IV PRN ×2 (08:39→09:34)
[2020-01-20] MEDS ORDERED: fentaNYL 100 MCG/2 ML INJ IV PRN (08:39)
[2020-01-20] MEDS ORDERED: TERBUTALINE 1 MG/1 ML INJ SUB-Q PRN (08:39)
--- NOTE | 2020-01-20 08:42 | History and Physical Report ---
History of Present Illness Date of examination: 01/20/20 Date of admission: 01/20/2020 Chief complaint: Active labor History of present illness: 29 year old presents to L&D in active labor. Patient denies LOF or vaginal bleeding. Patient received care at [facility] and records are available. LMP 04/22/2019. EDC 01/27/2020. significant for the following: UTI (treated during ), obesity, GBS positive, vitamin D deficiency. labs are as follows: O+, antibody screen negative, rubella immune, pap negative, RPR nonreactive, hepatitis B surface antigen negative, HIV negative, hemoglobin electrophoresis AA, GC negative, CT negative, varicella immune, trichomonas negative, 1 hour sugar test 79, GBS positive. Past History Past Medical History: other (obesity) Past Surgical History: other (EAB 2008) [facility] History: chlamydia (history of chlamyida prior to , treated and cured) Family/Genetic History: diabetes, hypertension, stroke, other (additional family history: depression, asthma, seizure disorder, AIDS) Social history: single, lives with family, full code. denies: smoking, alcohol abuse, IV drug use - Obstetrical History Expected Date of Delivery: 01/27/20 Actual Gestation: 39 Week(s) 0 Day(s) : 3 Para: 1 Hx # Term Pregnancies: 1 Number of Pregnancies: 0 Spontaneous Abortions: 0 Induced : 1 Number of Living Children: 1 Medications and Allergies Allergies Allergy/AdvReac Type Severity Reaction Status Date / Time No Known Allergies Allergy Verified 09/28/19 06:28 Home Medications Medication Instructions Recorded Confirmed Last Taken Type Doxylamine Succinate [Unisom] 25 mg PO QHS PRN #30 tablet 08/10/19 10/01/19 Unknown Rx Pyridoxine HCl (Vitamin B6) 25 mg PO Q6HR PRN #30 tablet 08/10/19 10/01/19 08/03/19 Rx [Pyridoxine HCl] Ampicillin 500 mg PO Q6H 30 Days #120 capsule 10/01/19 Unknown Rx Ampicillin 500 mg PO Q6H #30 capsule 10/05/19 Unknown Rx Ondansetron [Zofran ODT TAB] 8 mg PO Q8HR PRN #30 tab.rapdis 10/08/19 Unknown Rx Review of Systems All systems: negative (contractions) - Physical Exam Abdomen: Positive: normal appearance, soft. Negative: distention, tenderness, guarding, rigidity Genitourinary (Female): Positive: normal external genitalia, normal perenium. Negative: perineal/vulvar lesions (no lesions seen on careful exam with bright light upon admission) Vagina: Positive: normal moisture Uterus: Positive: enlarged (S=D). Negative: tender Anus/Rectum: Positive: normal perianal skin Extremities: Positive: normal. Negative: tenderness, edema - Obstetrical FHR: category 1 Uterine Contraction Monitor Mode: External Cervical Dilatation: 7 Cervical Effacement Percentage: 90 station: -1 Uterine Contraction Pattern: Regular Uterine Contraction Intensity: Moderate Results All other labs normal. Assessment and Plan A: at 39 weeks gestation. Active advanced labor (7 cm dilated upon arrival). GBS positive. P: Admit. Continuous EFM. GBS prophylaxis.
[2020-01-20] MEDS ORDERED: LACTATED RINGERS 1,000 ML IV SCH (09:00)
[2020-01-20] MEDS ORDERED: OXYTOCIN 20 UNIT/1000ML DRIP 20 UNITS/1,000 ML BAG IV SCH (09:00)
[2020-01-20 09:01] LABS: Hemoglobin 11.4 gm/dl (10.1-14.3); Mean Corpuscular HGB Conc 33 % (30-34); Mean Corpuscular Volume 90 fl (79-97); Red Blood Count 3.79 M/mm3 (3.65-5.03); Red Cell Distribution Width 15.5 % (13.2-15.2)
[2020-01-20] MEDS ORDERED: ONDANSETRON 4 MG/2 ML INJ IV ONE (09:09)
[2020-01-20 09:17] LABS: Platelet Count 241 K/mm3 (140-440)
[2020-01-20] MEDS ORDERED: DEXMEDETOMIDINE 200 MCG/2 ML VIAL IV ONE (09:20)
[2020-01-20] MEDS ORDERED: fentaNYL-BUPIV 2 MCG/ML-0.125% 200 MCG/100 ML BAG EPIDURAL ONE (09:21)
[2020-01-20] MEDS ORDERED: NALOXONE 2 MG/2 ML INJ IV PRN (09:34)
--- NOTE | 2020-01-20 09:34 | Anesthesia Consultation ---
Anesthesia Consult and Med Hx Date of service: 01/20/20 - Airway Anesthetic Teeth Evaluation: Good ROM Head & Neck: Adequate Mental/Hyoid Distance: Adequate Mallampati Class: Class II Intubation Access Assessment: Probably Good - Pulmonary Exam CTA: Yes - Cardiac Exam Cardiac Exam: RRR - Pre-Operative Health Status ASA Pre-Surgery Classification: ASA2 Proposed Anesthetic Plan: Epidural - Pulmonary Hx Asthma: No COPD: No Hx Pneumonia: No - Cardiovascular System Hx Hypertension: No - Central Nervous System Hx Seizures: No Hx Psychiatric Problems: No - Endocrine Hx Renal Disease: No Hx End Stage Renal Disease: No Hx Hypothyroidism: No Hx Hyperthyroidism: No - Hematic Hx Anemia: No Hx Sickle Cell Disease: No - Other Systems Hx Alcohol Use: No Hx Obesity: Yes
[2020-01-20] MEDS ORDERED: fentaNYL-BUPIV 2 MCG/ML-0.125% 200 MCG/100 ML BAG EPIDURAL SCH (10:00)
[2020-01-20] MEDS ORDERED: AMPICILLIN/NS 1 GM/50 ML 1 GM/50 ML BAG IV SCH (12:44)
[2020-01-20] MEDS ORDERED: WITCH HAZEL/ GLYCERIN PAD TP PRN (17:40)
[2020-01-20] MEDS ORDERED: MAGNESIUM HYDROXIDE (MOM) ORAL LIQD UDC PO PRN (17:40)
[2020-01-20] MEDS ORDERED: LANOLIN/ZINC/DIMETHICONE (LANSINOH) 7 GM TP PRN (17:40)
[2020-01-20] MEDS ORDERED: diphenhydrAMINE 25 MG CAP PO PRN (17:40)
--- NOTE | 2020-01-20 17:52 | Procedure Note ---
OB Delivery Note - Delivery Date of Delivery: 01/20/20 Surgeon: SHIVANI BERGMAN Estimated blood loss: 200cc - Vaginal Delivery presentation: vertex Delivery position: OP Intrapartum events: meconium Delivery induction: none Delivery augmentation: rupture of membranes Delivery monitor: external FHT, external uterine, internal FHT Route of delivery: Delivery placenta: spontaneous Delivery cord: 3 umbilical vessels Episiotomy: midline Delivery repair: vicryl Anesthesia: epidural Delivery comments: Spontaneous vaginal delivery at 16:30 of liveborn female weighing 3.519 kg over 2nd degree midline episiotomy with apgars of 8/9. Epidural anesthesia. Thin meconium stained amniotic fluid. heart rate deceleration just prior to delivery. head delivered easily, followed by easy delivery of shoulders. 3 vessel cord double clamped and cut and baby taken to radiant warmer for suctioning by NICU team. Spontaneous cry and respirations. Spontaneous delivery of intact placenta and membranes by meier mechanism. EBL 200 cc. Pitocin to IV fluids after delivery of placenta. Fundus firm and midline. Repair of 2nd degree midline episiotomy repaired with 2-0 vicryl in usual sterile fashion. Vaginal sweep negative. Sponge count correct. Mother and baby stable.
[2020-01-20] MEDS: DOCUSATE SODIUM 100 MG CAP PO SCH (23:10)
[2020-01-21] MEDS: IBUPROFEN 600 MG TAB PO SCH (01:59)
[2020-01-21] MEDS: HYDROcodone/ACETAMINOPHEN 5-325 MG TAB PO PRN ×3 (04:32→23:39)
[2020-01-21 05:47] LABS: Hematocrit 31.1 % (30.3-42.9); Hemoglobin 10.5 gm/dl (10.1-14.3)
[2020-01-21] MEDS ORDERED: BENZOCAINE/MENTHOL 20/0.5% TOP SPRAY 56 GM TP PRN (11:29)
--- NOTE | 2020-01-21 11:33 | Progress Note ---
Assessment and Plan - Patient Problems (1) Status post normal vaginal delivery Current Visit: Yes Status: Acute Plan to address problem: PPD 1 - stable but with elevated WBC Continue routine orders Since patient is afebrile, if WBC decreasing will discharge to home later today Patient instructed to follow-up at [facility] as needed or in 6 weeks for exam (2) Leukocytosis Current Visit: Yes Status: Acute Plan to address problem: Afebrile Repeat CBC ordered Subjective - Subjective Date of service: 01/21/20 Principal diagnosis: PPD #1; s/p Interval history: see [facility] - H&P and OB Delivery Procedure Note Patient reports: appetite normal, voiding normally, pain well controlled, ambulating normally, no dizzy ambulation : doing well, nursing well Objective - Vital Signs Latest vital signs: Vital Signs Temp Pulse Resp BP BP Pulse Ox 01/21/20 09:08 97.8 F 84 18 124/68 95 01/21/20 06:34 97.9 F 86 18 126/58 98 01/21/20 02:52 98.5 F 96 H 18 108/51 98 01/21/20 01:59 18 01/20/20 22:13 97.8 F 81 18 118/73 98 01/20/20 18:35 97.4 F L 20 L 20 109/79 01/20/20 17:49 83 112/65 01/20/20 17:34 86 101/53 01/20/20 17:19 80 123/63 01/20/20 17:04 79 135/68 01/20/20 14:47 86 100 01/20/20 14:42 72 98 01/20/20 14:38 76 92 01/20/20 14:37 86 98 01/20/20 14:32 82 97 01/20/20 14:27 83 97 01/20/20 14:22 85 98 01/20/20 14:17 87 93 01/20/20 14:12 91 H 97 01/20/20 14:07 76 96 01/20/20 14:02 89 97 01/20/20 13:57 86 97 01/20/20 13:52 89 98 01/20/20 13:47 86 97 01/20/20 13:42 87 98 01/20/20 13:37 82 99 01/20/20 13:32 82 99 01/20/20 13:27 83 100 01/20/20 13:22 84 99 01/20/20 13:17 84 100 01/20/20 13:12 86 100 01/20/20 13:07 81 100 01/20/20 13:02 81 99 01/20/20 12:57 79 100 01/20/20 12:52 79 100 01/20/20 12:47 69 100 01/20/20 12:42 82 99 01/20/20 12:37 83 100 01/20/20 12:32 84 100 01/20/20 12:27 82 100 01/20/20 12:22 76 97 01/20/20 12:17 84 97 01/20/20 12:12 81 99 01/20/20 12:07 80 98 01/20/20 12:02 74 98 01/20/20 11:57 77 98 01/20/20 11:52 93 H 99 01/20/20 11:47 81 99 01/20/20 11:42 75 100 01/20/20 11:40 14 01/20/20 11:37 79 100 01/20/20 11:32 76 100 Intake and Output 01/20/20 01/21/20 01/21/20 23:59 07:59 15:59 Intake Total 720 120 Output Total 400 Balance 320 120 Intake: Oral 120 Intake, Free Water 720 Output: Urine 400 Void 400 Other: Total, Intake Amount 120 Total, Output Amount 200 # Voids Void 1 Estimated Blood Loss 200 - Exam Cardiovascular: Present: Regular rate Lungs: Present: Clear to auscultation Abdomen: Present: normal appearance, soft Vulva: both: laceration/episiotomy (well approximated) Uterus: Present: normal, firm, fundal height below umbilicus Extremities: Present: normal Comments: scant lochia
[2020-01-21 12:13] LABS: Hematocrit 30.5 % (30.3-42.9); Hemoglobin 10.2 gm/dl (10.1-14.3); Mean Corpuscular HGB Conc 33 % (30-34); Mean Corpuscular Volume 90 fl (79-97); Platelet Count 297 K/mm3 (140-440); Red Cell Distribution Width 15.6 % (13.2-15.2)
--- NOTE | 2020-01-21 14:07 | Discharge Summary ---
Providers - Providers Date of Admission: 01/20/20 08:05 Date of discharge: 01/21/20 Attending physician: ARTEM MOROCHO MD Primary care physician: ARTEM MOROCHO MD Hospitalization Reason for admission: active labor, IUP at term Delivery: Episiotomy: midline Laceration: none Other procedures: none complications: none Discharge diagnosis: IUP at term delivered [place] baby: female Hospital course: Uncomplicated Condition at discharge: Stable Disposition: DC-01 TO HOME OR SELFCARE - Discharge Diagnoses (1) Status post normal vaginal delivery Status: Acute (2) Leukocytosis Status: Acute Comment: Asymptomatic and decreasing (initially 16.3, repeat 14.6) Pt is afebrile Plan - Provider Discharge Summary Activity: routine, no sex for 6 weeks, no heavy lifting 4 weeks, no strenuous exercise Diet: routine Instructions: routine Additional instructions: [] Smoking cessation referral if applicable(refer to patient education folder for contact #) [] Refer to [facility] Booklet Call your doctor immediately for: * Fever > 100.5 * Heavy vaginal bleeding ( >1 pad per hour) * Severe persistent headache * Shortness of breath * Reddened, hot, painful area to leg or breast * Drainage or odor from incision. * Keep incision clean and dry at all times and follow doctor's instructions regarding bathing/showering - Follow up plan Follow up: ARTEM MOROCHO MD [Primary Care Provider] - 6 Weeks (Follow-up at [facility] as needed or in 6 weeks for exam)
[2020-01-21] MEDS: FERROUS SULFATE 325 MG TAB PO SCH ×2 (14:33→23:39)
[2020-01-21] MEDS: DOCUSATE SODIUM 100 MG CAP PO SCH ×2 (14:38→22:00)
[2020-01-22] MEDS: IBUPROFEN 600 MG TAB PO SCH ×2 (05:46)
[2020-01-22] MEDS: FERROUS SULFATE 325 MG TAB PO SCH (10:17)
[2020-01-22] MEDS: DOCUSATE SODIUM 100 MG CAP PO SCH (10:17)
[2020-01-22] MEDS: HYDROcodone/ACETAMINOPHEN 5-325 MG TAB PO PRN (10:21)
[2020-01-22 13:04] VITALS: BP 127/81
--- NOTE | 2020-01-22 17:19 | Post Anesthesia Evaluation ---
- Post Anesthesia Evaluation Patient Participated: Yes Airway Patent: Yes Stable Respiratory Function: Yes Nausea/Vomiting: No Temp > 96.8F: Yes Pain Manageable: Yes Adequeate Hydration: Yes Anesthesia Complications: No Block Receding Appropriately: Yes Patient on Ventilator: No
== END 2020-01-22 14:00 | disposition home or self-care (01) | DRG 775 ==
LOC: TRG 08:04 → LD 08:05 → OB 18:43
PROVIDERS: ADMIT Obstetrics & Gynecology; ATTEND Obstetrics & Gynecology
PROC: 10E0XZZ Delivery of Products of Conception, External Approach (ICD-10-PCS; principal; 2020-01-20)
PROC: 0W8NXZZ Division of Female Perineum, External Approach (ICD-10-PCS; 2020-01-20)
PROC: 3E0R3BZ Introduction of Anesthetic Agent into Spinal Canal, Percutaneous Approach (ICD-10-PCS; 2020-01-20)
PROC: 00HU33Z Insertion of Infusion Device into Spinal Canal, Percutaneous Approach (ICD-10-PCS; 2020-01-20)
DX: O99.824 Streptococcus B carrier state complicating childbirth (principal); O77.0 Labor and delivery complicated by meconium in amniotic fluid; O99.12 Other diseases of the blood and blood-forming organs and certain disorders involving the immune mechanism complicating childbirth; D72.829 Elevated white blood cell count, unspecified; O99.214 Obesity complicating childbirth; E66.9 Obesity, unspecified; Z83.3 Family history of diabetes mellitus; Z82.49 Family history of ischemic heart disease and other diseases of the circulatory system; Z3A.39 39 weeks gestation of pregnancy; Z37.0 Single live birth; Z82.3 Family history of stroke; Z81.8 Family history of other mental and behavioral disorders; Z82.5 Family history of asthma and other chronic lower respiratory diseases; Z82.0 Family history of epilepsy and other diseases of the nervous system
CPT/HCPCS: 36415; 85014; 85018; 85027; 86850; 86900; 86901; G0378; J0290; J2590; J3010; J3490; J7120